=== PATIENT | female | born 1990 | race Caucasian/White ===

== ENCOUNTER 2016-06-04 06:25 | Inpatient (IN) | payer BC ==
[2016-06-04] MEDS ORDERED: Misoprostol 25 MCG (1/4 of 100 MCG) Tab ONE ×2 (07:27→10:40)
[2016-06-04] MEDS ORDERED: Sodium Chloride 0.9% 10 ML Syringe FLUSH PRN (07:31)
[2016-06-04] MEDS ORDERED: Nalbuphine 20 MG/1 ML Amp IVPUSH PRN (07:34)
[2016-06-04] MEDS ORDERED: Ampicillin 2 GM in Sodium Chloride 0.9% 100 ML IV ONE (07:35)
--- NOTE | 2016-06-04 07:43 | PCM.LDHP ---
L&D History of Present Illness - General Date of Service: 06/04/16 Admit Problem/Dx: Admission Diagnosis/Problem Admission Diagnosis/Problem Source of Information: Patient History Limitations: Reports: No limitations - History of Present Illness Introduction:: 25-year-old, G1, P0000, TEE 4 at estimated gestational age 39 weeks, and 4 days. Patient presents labor and deliver for induction of labor. GBS positive. Blood type O positive, antibody screen negative, hemoglobin, hematocrit 13.8,/40.7 on 11/01/15, rubella immune, RPR nonreactive, hepatitis B surface antigen negative, HIV negative, GC, chlamydia, negative on : 10.5/31.7, platelets 188,000 and 1 hour OB glucose screen 103. Patient lives in [facility]. Improves with: Reports: None Worsens with: Reports: None Associated Symptoms: Reports: N - Related Data Allergies/Adverse Reactions: Allergies Allergy/AdvReac Type Severity Reaction Status Date / Time Sulfa (Sulfonamide Allergy Hives Verified 06/04/16 07:42 Antibiotics) Past Medical History : 1 Para: 0 (0000) LMP (Approximate): H&P Review of Systems - Review of Systems: Review Of Systems: See Below General: Reports: no symptoms HEENT: Reports: no symptoms Pulmonary: Reports: No Symptoms Cardiovascular: Reports: no symptoms Gastrointestinal: Reports: No symptoms Genitourinary: Reports: no symptoms Musculoskeletal: Reports: no symptoms Skin: Reports: no symptoms Psychiatric: Reports: no symptoms Neurological: Reports: No Symptoms Hematologic/Lymphatic: Reports: no symptoms Immunologic: Reports: no symptoms L&D Exam - Exam Exam: See Below - OB Specific Fundal Height in cm: 38 movement: active heart tones: present heart tones per min: 135 Heart Rate (FHR) Variability: Moderate (6-25 bmp) Presentation: Vertex - Parker Score Parker Score Cervix Position: Posterior Parker Score Consistency: Soft Parker Score Effacement: >80% Parker Score Dilation: 1-2 cm Parker Score Infant's Station: -3 Parker Score Total: 6 - Exam General: alert, oriented HEENT: Mucosa moist & pink Neck: supple, trachea midline Lungs: Clear to auscultation, Normal respiratory effort Cardiovascular: regular rate, regular rhythm Abdomen: normal bowel sounds, soft Genitourinary: Normal external exam Back Exam: normal inspection, full range of motion Extremities: normal inspection Skin: warm, dry, intact Neurological: reflexes equal bilateral Psychiatric: alert, normal affect, normal mood - Problem List (1) 39 weeks gestation of SNOMED Code(s): 64442097 ICD Code: Z3A.39 - 39 WEEKS GESTATION OF Status: Acute Current Visit: Yes (2) GBS (group B Streptococcus carrier), +RV culture, currently SNOMED Code(s): 44051449, 028338190 ICD Code: O99.820 - STREPTOCOCCUS B CARRIER STATE COMPLICATING Status: Acute Current Visit: Yes Problem List Initiated/Reviewed/Updated: No Orders Last 24hrs: Active Orders 24 hr Category Date Time Status Communication Order [RC] ASDIRECTED Care 06/04/16 07:31 Ordered Communication Order [RC] ASDIRECTED Care 06/04/16 07:31 Ordered Communication Order [RC] ASDIRECTED Care 06/04/16 07:31 Ordered Monitoring [RC] INTERMITTENT Care 06/04/16 07:31 Ordered Notify Provider [RC] ASDIRECTED Care 06/04/16 07:31 Ordered Peripheral IV Care [RC] . DIRECTED Care 06/04/16 07:31 Ordered Vaginal Exam [RC] ASDIRECTED Care 06/04/16 07:31 Ordered Vital Signs [RC] ASDIRECTED Care 06/04/16 07:31 Ordered Clear Liquid Diet [DIET] Diet 06/04/16 Breakfast Ordered CBC WITH AUTO DIFF [HEME] Stat Lab 06/04/16 07:34 Ordered TYPE AND SCREEN [BBK] Stat Lab 06/04/16 07:34 Ordered Ampicillin 1 gm Med 06/04/16 12:00 Ordered Sodium Chloride 0.9% [Normal Saline] 100 ml IV Q4H Ampicillin 2 gm Med 06/04/16 07:35 Ordered Sodium Chloride 0.9% [Normal Saline] 100 ml IV ONETIME Lactated Ringers [Ringers, Lactated] 1,000 ml Med 06/04/16 07:45 Ordered IV ASDIRECTED Misoprostol [Cytotec] Med 06/04/16 07:45 Ordered 25 mcg VAG Q3H Nalbuphine [Nubain] Med 06/04/16 07:34 Ordered 10 mg IVPUSH Q2H PRN Oxytocin [Pitocin] 20 unit Med 06/04/16 07:45 Ordered Lactated Ringers [Ringers, Lactated] 1,000 ml IV ASDIRECTED Oxytocin/Lactated Ringers [Pitocin in LR 10 Units/1,000 Med 06/04/16 07:45 Ordered ML] 10 unit in 1,000 ml IV TITRATE Sodium Chloride 0.9% [Saline Flush] Med 06/04/16 07:31 Ordered 10 ml FLUSH ASDIRECTED PRN Peripheral IV Insertion Adult [OM.PC] Routine Oth 06/04/16 07:31 Ordered Medication Orders Ampicillin Sodium 2 gm/ Sodium (Chloride) 100 mls @ 200 mls/hr IV ONETIME ONE Stop: 06/04/16 08:04 Lactated Ringer's (Ringers, Lactated) 1,000 mls @ 40 mls/hr IV ASDIRECTED ADE Oxytocin/Lactated Ringer's (Pitocin In Lr 10 Units/1,000 Ml) 10 unit in 1,000 mls @ 12 mls/hr IV TITRATE ADE; 2 MUNITS/MIN PRN Reason: Protocol Ampicillin Sodium 1 gm/ Sodium (Chloride) 100 mls @ 200 mls/hr IV Q4H ADE Misoprostol (Cytotec) 25 mcg VAG Q3H ADE Stop: 06/04/16 13:46 Nalbuphine HCl (Nubain) 10 mg IVPUSH Q2H PRN PRN Reason: Pain Sodium Chloride (Saline Flush) 10 ml FLUSH ASDIRECTED PRN PRN Reason: Keep Vein Open Assessment/Plan Comment:: Admit for labor and delivery
[2016-06-04] MEDS ORDERED: Oxytocin/Lactated Ringers 10 UNIT/1,000 ML BAG IV SCH (07:45)
[2016-06-04] MEDS ORDERED: Sodium Chloride 0.9% 100 ML ONE (07:45)
[2016-06-04] MEDS: Misoprostol 100 MCG Tab VAG SCH (07:45)
[2016-06-04] MEDS: Lactated Ringers 1,000 ML IV SCH (07:54)
[2016-06-04] MEDS ORDERED: ePHEDrine 50 MG/ML SDV IVPUSH PRN (09:20)
[2016-06-04] MEDS ORDERED: Ondansetron 4 MG/2 ML SDV IVPUSH PRN (09:20)
[2016-06-04] MEDS ORDERED: fentaNYL 100 MCG/2 ML SDV EPIDUR PRN (09:20)
--- NOTE | 2016-06-04 09:28 | PCM.PREANE ---
Preanesthetic Assessment - Anesthesia/Transfusion/Family Hx Anesthesia History: Prior Anesthesia Without Reaction Family History of Anesthesia Reaction: No Transfusion History: No Prior Transfusion(s) Intubation History: Unknown - Review of Systems General: No Symptoms Pulmonary: No Symptoms Cardiovascular: Orthopnea Gastrointestinal: No symptoms (GERD) Neurological: No Symptoms Other: Reports: None, Sinus Problem (seasonal allergies noted.), Anxiety - Physical Assessment NPO Status Date: 06/04/16 NPO Status Time: 06:00 Pulse: 106 O2 Sat by Pulse Oximetry: 99 Respiratory Rate: 15 Blood Pressure: 122/77 Temperature: 36.3 C Vital Signs: Last Vital Signs Temp 36.3 C 06/04/16 07:47 Pulse 106 H 06/04/16 07:47 Resp 15 06/04/16 07:47 BP 122/77 06/04/16 07:47 Pulse Ox Height: 1.63 m Weight: 77.519 kg ASA Class: 2 Mental Status: Alert & Oriented x3 Airway Class: Mallampati = 2 Dentition: Reports: Normal Dentition (metal retainer noted on the bottom/ permanent.), Caries Thyro-Mental Finger Breadths: 3 Mouth Opening Finger Breadths: 3 ROM/Head Extension: Full Lungs: Clear to auscultation, Normal respiratory effort Cardiovascular: Regular Rate, Regular Rhythm - Lab Values: Laboratory Last Values WBC 8.85 K/mm3 (3.98-10.04) 06/04/16 07:56 RBC 3.81 M/mm3 (3.98-5.22) L 06/04/16 07:56 Hgb 11.5 gm/L (11.2-15.7) 06/04/16 07:56 Hct 34.3 % (34.1-44.9) 06/04/16 07:56 MCV 90.0 fl (79.4-94.8) 06/04/16 07:56 MCH 30.2 pg (25.6-32.2) 06/04/16 07:56 MCHC 33.5 g/dl (32.2-35.5) 06/04/16 07:56 RDW Std Deviation 48.1 fL (36.4-46.3) H 06/04/16 07:56 Plt Count 125 K/mm3 (182-369) L 06/04/16 07:56 MPV 12.3 fl (9.4-12.3) 06/04/16 07:56 Neut % (Auto) 70.0 % (34.0-71.1) 06/04/16 07:56 Lymph % (Auto) 19.3 % (19.3-51.7) 06/04/16 07:56 [place] % (Auto) 9.0 % (4.7-12.5) 06/04/16 07:56 Eos % (Auto) 0.8 (0.7-5.8) 06/04/16 07:56 Baso % (Auto) 0.1 % (0.1-1.2) 06/04/16 07:56 Neut # (Auto) 6.19 K/mm3 (1.56-6.13) H 06/04/16 07:56 Lymph # (Auto) 1.71 K/mm3 (1.18-3.74) 06/04/16 07:56 [place] # (Auto) 0.80 K/mm3 (0.24-0.36) H 06/04/16 07:56 Eos # (Auto) 0.07 K/mm3 (0.04-0.36) 06/04/16 07:56 Baso # (Auto) 0.01 K/mm3 (0.01-0.08) 06/04/16 07:56 Blood Type O POSITIVE 06/04/16 07:56 Gel Antibody Screen Negative 06/04/16 07:56 Labs reviewed and noted from above. - Allergies Allergies/Adverse Reactions: Allergies Allergy/AdvReac Type Severity Reaction Status Date / Time Sulfa (Sulfonamide Allergy Hives Verified 06/04/16 07:42 Antibiotics) - Anesthesia Plan Pre-Op Medication Ordered: None - Acknowledgements Anesthesia Type Planned: Epidural Pt an Appropriate Candidate for the Planned Anesthesia: Yes Alternatives and Risks of Anesthesia Discussed w Pt/Guardian: Yes Pt/Guardian Understands and Agrees with Anesthesia Plan: Yes PreAnesthesia Questionnaire [employer]CH[employer]ICIAN History: Reports: Psychiatric History: Reports: Anxiety - Past Surgical History HEENT Surgical History: Reports: Oral surgery - SUBSTANCE USE Smoking Status *Q: Never Smoker Tobacco Use Within Last Twelve Months: No Second Hand Smoke Exposure: No Recreational Drug Use History: No - CURRENT (IN HOUSE) MEDS Current Meds: Current Medications Lactated Ringer's (Ringers, Lactated) 1,000 mls @ 40 mls/hr IV ASDIRECTED ADE Last Admin: 06/04/16 07:54 Dose: 40 mls/hr Oxytocin/Lactated Ringer's (Pitocin In Lr 10 Units/1,000 Ml) 10 unit in 1,000 mls @ 12 mls/hr IV TITRATE ADE; 2 MUNITS/MIN PRN Reason: Protocol Ampicillin Sodium 1 gm/ Sodium (Chloride) 100 mls @ 200 mls/hr IV Q4H ADE Oxytocin 20 unit/ Lactated (Ringer's) 1,002 mls @ 500 mls/hr IV ASDIRECTED ADE Misoprostol (Cytotec) 25 mcg VAG Q3H ADE Stop: 06/04/16 14:01 Last Admin: 06/04/16 07:45 Dose: 25 mcg Nalbuphine HCl (Nubain) 10 mg IVPUSH Q2H PRN PRN Reason: Pain Sodium Chloride (Saline Flush) 10 ml FLUSH ASDIRECTED PRN PRN Reason: Keep Vein Open Discontinued Medications Ampicillin Sodium 2 gm/ Sodium (Chloride) 100 mls @ 200 mls/hr IV ONETIME ONE Stop: 06/04/16 08:04 Last Admin: 06/04/16 07:55 Dose: 200 mls/hr Sodium Chloride (Normal Saline) Confirm Administered Dose 100 mls @ as directed .ROUTE .STK-MED ONE Stop: 06/04/16 07:46 Misoprostol (Cytotec) Confirm Administered Dose 25 mcg .ROUTE .STK-MED ONE Stop: 06/04/16 07:28
--- NOTE | 2016-06-04 10:02 | PCM.SN ---
- Free Text/Narrative Note: First Cytotec 25 mcg placed intravaginally at 0745 hours
[2016-06-04] MEDS ORDERED: Misoprostol 25 MCG (1/4 of 100 MCG) Tab VAG SCH (10:42)
--- NOTE | 2016-06-04 12:12 | PCM.SN ---
- Free Text/Narrative Note: Will continue Cytotec 25 mcg at 1400, 1700, 2000 and then start Pitocin at MN tonight. Discussed plan with patient and family and they agree. NST reactive.
[2016-06-04] MEDS: Ampicillin 1 GM in Sodium Chloride 0.9% 100 ML IV SCH ×3 (12:24→20:59)
[2016-06-04] MEDS: Misoprostol 25 MCG (1/4 of 100 MCG) Tab VAG SCH ×3 (14:04→21:00)
--- NOTE | 2016-06-04 16:15 | PCM.SN ---
- Free Text/Narrative Note: Contractions increasing in intensity, cervix unchanged at 1400, due for cytotec at 1700 and 2000 then pitocin at MN sill started. FHR Cat I
[2016-06-05] MEDS: Bupivacaine/fentaNYL/NS 100 ML Bag EPIDUR SCH ×3 (00:13→15:26)
[2016-06-05] MEDS: Lactated Ringers 1,000 ML IV SCH ×3 (01:03→18:04)
[2016-06-05] MEDS: Ampicillin 1 GM in Sodium Chloride 0.9% 100 ML IV SCH ×5 (01:04→16:25)
[2016-06-05] MEDS: Misoprostol 25 MCG (1/4 of 100 MCG) Tab VAG SCH ×2 (02:38→04:51)
--- NOTE | 2016-06-05 08:06 | PCM.SN ---
- Free Text/Narrative Note: Cervix 4 cm/80% effaced, soft, mid position, -1 station. Cat I FHR. Amniotomy clear fluid.
--- NOTE | 2016-06-05 16:34 | PCM.SN ---
- Free Text/Narrative Note: Cervix complete, ROT, zero station will begin pushing Cat I FHR.
[2016-06-05] MEDS ORDERED: Misoprostol 200 MCG Tab ONE (18:53)
--- NOTE | 2016-06-05 19:35 | PCM.DEL ---
L & D Note - General Info Date of Service: 06/05/16 Mother's Due Date: 06/07/16 - Delivery Note Labor: augmented by ARM, augmented by oxytocin Cervical Ripening Method: Misoprostil (25 mcg x5) Delivery Outcome: Livebirth (male STACY 3430 grams/ 7#9 oz at [id number] APGARS 7/9) Delivery Method: Spontaneous Vaginal Delivery Infant Delivery Mode: Spontaneous Presentation: Left Occiput Anterior (STACY) Nuchal cord: none Prep: povidone-iodine (betadine Anesthesia Type: Epidural Amniotic Fluid Description: Clear Episiotomy Type: Midline Laceration: none Suture type: other (monocryl x3) Suture size: 3-0 Placenta: intact, spontaneous (1845) Cord: 3 vessels Estimated blood loss: 750 Resuscitation needed: No : bulb syringe, cathether, stimulated, warmed, blanket used, warmer used Provider: Dallas Rodriguez a) Score 1 min: 7 Score 5 min: 9 - Patient Data Vitals - most recent: Last Vital Signs Temp 97.3 F 06/04/16 09:33 Pulse 106 H 06/04/16 09:33 Resp 15 06/04/16 09:33 BP 122/77 06/04/16 09:33 Pulse Ox 99 06/04/16 09:33 Weight - most recent: 170 lb 14.4 oz Med Orders - Current: Current Medications Ephedrine Sulfate (Ephedrine Sulfate) 5 mg IVPUSH ASDIRECTED PRN PRN Reason: Hypotension Fentanyl (Sublimaze) 100 mcg EPIDUR Q3H PRN PRN Reason: Pain Last Admin: 06/05/16 00:13 Dose: 100 mcg Fentanyl/Bupivacaine HCl (Fentanyl/Bupivacaine/Ns 2 Mcg-0.125% 100 Ml) 100 ml EPIDUR ASDIRECTED ADE Last Admin: 06/05/16 15:26 Dose: 100 ml Lactated Ringer's (Ringers, Lactated) 1,000 mls @ 40 mls/hr IV ASDIRECTED ADE Last Admin: 06/05/16 18:04 Dose: 40 mls/hr Oxytocin/Lactated Ringer's (Pitocin In Lr 10 Units/1,000 Ml) 10 unit in 1,000 mls @ 12 mls/hr IV TITRATE ADE; 2 MUNITS/MIN PRN Reason: Protocol Last Titration: 06/05/16 18:21 Dose: 14 munits/min, 84 mls/hr Ampicillin Sodium 1 gm/ Sodium (Chloride) 100 mls @ 200 mls/hr IV Q4H [facility] Last Admin: 06/05/16 16:25 Dose: 200 mls/hr Oxytocin 20 unit/ Lactated (Ringer's) 1,002 mls @ 500 mls/hr IV ASDIRECTED ADE Nalbuphine HCl (Nubain) 10 mg IVPUSH Q2H PRN PRN Reason: Pain Ondansetron HCl (Zofran) 4 mg IVPUSH ONETIME PRN PRN Reason: Nausea/Vomiting Sodium Chloride (Saline Flush) 10 ml FLUSH ASDIRECTED PRN PRN Reason: Keep Vein Open Discontinued Medications Ampicillin Sodium 2 gm/ Sodium (Chloride) 100 mls @ 200 mls/hr IV ONETIME ONE Stop: 06/04/16 08:04 Last Admin: 06/04/16 07:55 Dose: 200 mls/hr Sodium Chloride (Normal Saline) Confirm Administered Dose 100 mls @ as directed .ROUTE .STK-MED ONE Stop: 06/04/16 07:46 Last Admin: 06/04/16 09:54 Dose: Not Given Misoprostol (Cytotec) Confirm Administered Dose 25 mcg .ROUTE .STK-MED ONE Stop: 06/04/16 07:28 Last Admin: 06/04/16 09:54 Dose: Not Given Misoprostol (Cytotec) 25 mcg VAG Q3H [facility] Stop: 06/04/16 14:01 Last Admin: 06/04/16 07:45 Dose: 25 mcg Misoprostol (Cytotec) 25 mcg VAG Q3H [facility] Stop: 06/04/16 14:01 Last Admin: 06/04/16 10:49 Dose: 25 mcg Misoprostol (Cytotec) Confirm Administered Dose 25 mcg .ROUTE .STK-MED ONE Stop: 06/04/16 10:41 Last Admin: 06/04/16 11:03 Dose: Not Given Misoprostol (Cytotec) 25 mcg VAG Q3H [facility] Stop: 06/05/16 02:01 Last Admin: 06/05/16 04:51 Dose: Not Given Misoprostol (Cytotec) Confirm Administered Dose 400 mcg .ROUTE .STK-MED ONE Stop: 06/05/16 18:54 - Problem List & Annotations (1) 39 weeks gestation of SNOMED Code(s): 07451526 Code(s): Z3A.39 - 39 WEEKS GESTATION OF Status: Acute Current Visit: Yes (2) GBS (group B Streptococcus carrier), +RV culture, currently SNOMED Code(s): 32456532, 556758755 Code(s): O99.820 - STREPTOCOCCUS B CARRIER STATE COMPLICATING Status: Acute Current Visit: Yes (3) Spontaneous vaginal delivery SNOMED Code(s): 86100084 Code(s): O80 - ENCOUNTER FOR FULL-TERM UNCOMPLICATED DELIVERY Status: Acute Current Visit: Yes - Problem List Review Problem List Initiated/Reviewed/Updated: No - Plan Plan:: Admit for labor and delivery
[2016-06-05] MEDS ORDERED: Simethicone 80 MG Tab.Chew PO PRN (19:38)
[2016-06-05] MEDS ORDERED: Acetaminophen/oxyCODONE 325-5 MG Tab PO PRN (19:38)
[2016-06-05] MEDS ORDERED: Lanolin 100% Cream 7 GM Tube TOP PRN (19:38)
[2016-06-05] MEDS ORDERED: Acetaminophen 325 MG Tab PO PRN (19:38)
[2016-06-05] MEDS ORDERED: Witch Hazel Medicated Pads 100/Jar TOP PRN (19:38)
[2016-06-05] MEDS ORDERED: Bupivacaine 0.25% 10 ML SDV ONE (19:38)
[2016-06-05] MEDS ORDERED: Benzocaine/Menthol 20%-0.5% Spray 56 GM Canister TOP PRN (19:38)
[2016-06-05] MEDS ORDERED: Misoprostol 200 MCG Tab PO ONE (19:52)
[2016-06-05] MEDS: Docusate Sodium 100 MG Cap PO PRN (20:39)
[2016-06-05] MEDS: Ibuprofen 600 MG Tab PO PRN (20:39)
[2016-06-06] MEDS: Docusate Sodium 100 MG Cap PO PRN ×2 (06:04→21:55)
[2016-06-06] MEDS: Ibuprofen 600 MG Tab PO PRN ×4 (06:05→21:55)
--- NOTE | 2016-06-06 08:22 | PCM.SN ---
- Free Text/Narrative Note: Afebrile, no heavy vaginal bleeding, no leg cramping. Had BM and urinating without difficulty. Slep well last night.
[2016-06-06] MEDS: Prenatal Multivitamin with Calcium/Folic Acid/Iron Tab PO SCH (10:27)
[2016-06-07] MEDS: Ibuprofen 600 MG Tab PO PRN (03:59)
[2016-06-07 05:01] VITALS: BP 121/80
--- NOTE | 2016-06-07 07:43 | PCM.DCSUM1 ---
Discharge Summary - Hospital Course Free Text/Narrative:: [facility] LIVE L/D Delivery Note Patient Name: BOUCHRA LEE Date of : 89 Patient Status: Inpatient Attending Provider: Dallas Vela Date: 06/05/16 19:23 Initialization Date: 06/05/16 19:23 L & D Note - General Info Date of Service: 06/05/16 Mother's Due Date: 06/07/16 - Delivery Note Labor: augmented by ARM, augmented by oxytocin Cervical Ripening Method: Misoprostil (25 mcg x5) Delivery Outcome: Livebirth (male STACY 3430 grams/ 7#9 oz at [id number] APGARS 7/9) Delivery Method: Spontaneous Vaginal Delivery Delivery Mode: Spontaneous Presentation: Left Occiput Anterior (STACY) Nuchal cord: none Prep: povidone-iodine (betadine Anesthesia Type: Epidural Amniotic Fluid Description: Clear Episiotomy Type: Midline Laceration: none Suture type: other (monocryl x3) Suture size: 3-0 Placenta: intact, spontaneous (1845) Cord: 3 vessels Estimated blood loss: 750 Resuscitation needed: No [place]: bulb syringe, cathether, stimulated, warmed, blanket used, warmer used Provider: Dallas Vela (Jeferson a) Score 1 min: 7 Score 5 min: 9 - Patient Data Vitals - most recent: Last Vital Signs Temp 97.3 F 06/04/16 09:33 Pulse 106 H 06/04/16 09:33 Resp 15 06/04/16 09:33 BP 122/77 06/04/16 09:33 Pulse Ox 99 06/04/16 09:33 Weight - most recent: 170 lb 14.4 oz Med Orders - Current: Current Medications Ephedrine Sulfate (Ephedrine Sulfate) 5 mg IVPUSH ASDIRECTED PRN PRN Reason: Hypotension Fentanyl (Sublimaze) 100 mcg EPIDUR Q3H PRN PRN Reason: Pain Last Admin: 06/05/16 00:13 Dose: 100 mcg Fentanyl/Bupivacaine HCl (Fentanyl/Bupivacaine/Ns 2 Mcg-0.125% 100 Ml) 100 ml EPIDUR ASDIRECTED ADE Last Admin: 06/05/16 15:26 Dose: 100 ml Lactated Ringer's (Ringers, Lactated) 1,000 mls @ 40 mls/hr IV ASDIRECTED ADE Last Admin: 06/05/16 18:04 Dose: 40 mls/hr Oxytocin/Lactated Ringer's (Pitocin In Lr 10 Units/1,000 Ml) 10 unit in 1,000 mls @ 12 mls/hr IV TITRATE ADE; 2 MUNITS/MIN PRN Reason: Protocol Last Titration: 06/05/16 18:21 Dose: 14 munits/min, 84 mls/hr Ampicillin Sodium 1 gm/ Sodium (Chloride) 100 mls @ 200 mls/hr IV Q4H COUNT INCLUDES THE [facility] Last Admin: 06/05/16 16:25 Dose: 200 mls/hr Oxytocin 20 unit/ Lactated (Ringer's) 1,002 mls @ 500 mls/hr IV ASDIRECTED COUNT INCLUDES THE [facility] Nalbuphine HCl (Nubain) 10 mg IVPUSH Q2H PRN PRN Reason: Pain Ondansetron HCl (Zofran) 4 mg IVPUSH ONETIME PRN PRN Reason: Nausea/Vomiting Sodium Chloride (Saline Flush) 10 ml FLUSH ASDIRECTED PRN PRN Reason: Keep Vein Open Discontinued Medications Ampicillin Sodium 2 gm/ Sodium (Chloride) 100 mls @ 200 mls/hr IV ONETIME ONE Stop: 06/04/16 08:04 Last Admin: 06/04/16 07:55 Dose: 200 mls/hr Sodium Chloride (Normal Saline) Confirm Administered Dose 100 mls @ as directed .ROUTE .STK-MED ONE Stop: 06/04/16 07:46 Last Admin: 06/04/16 09:54 Dose: Not Given Misoprostol (Cytotec) Confirm Administered Dose 25 mcg .ROUTE .STK-MED ONE Stop: 06/04/16 07:28 Last Admin: 06/04/16 09:54 Dose: Not Given Misoprostol (Cytotec) 25 mcg VAG Q3H COUNT INCLUDES THE [facility] Stop: 06/04/16 14:01 Last Admin: 06/04/16 07:45 Dose: 25 mcg Misoprostol (Cytotec) 25 mcg VAG Q3H COUNT INCLUDES THE [facility] Stop: 06/04/16 14:01 Last Admin: 06/04/16 10:49 Dose: 25 mcg Misoprostol (Cytotec) Confirm Administered Dose 25 mcg .ROUTE .STK-MED ONE Stop: 06/04/16 10:41 Last Admin: 06/04/16 11:03 Dose: Not Given Misoprostol (Cytotec) 25 mcg VAG Q3H ADE Stop: 06/05/16 02:01 Last Admin: 06/05/16 04:51 Dose: Not Given Misoprostol (Cytotec) Confirm Administered Dose 400 mcg .ROUTE .STK-MED ONE Stop: 06/05/16 18:54 - Problem List & Annotations (1) 39 weeks gestation of SNOMED Code(s): 70118304 Code(s): Z3A.39 - 39 WEEKS GESTATION OF Status: Acute Current Visit: Yes (2) GBS (group B Streptococcus carrier), +RV culture, currently SNOMED Code(s): 55723848, 363786757 Code(s): O99.820 - STREPTOCOCCUS B CARRIER STATE COMPLICATING Status: Acute Current Visit: Yes (3) Spontaneous vaginal delivery SNOMED Code(s): 72556247 Code(s): O80 - ENCOUNTER FOR FULL-TERM UNCOMPLICATED DELIVERY Status: Acute Current Visit: Yes - Problem List Review Problem List Initiated/Reviewed/Updated: No - Plan Plan:: Admit for labor and delivery HPI Initial Comments: [facility] LIVE L/D Delivery Note Patient Name: BOUCHRA LEE Date of : 89 Patient Status: Inpatient Attending Provider: Dallas Vela Date: 06/05/16 19:23 Initialization Date: 06/05/16 19:23 L & D Note - General Info Date of Service: 06/05/16 Mother's Due Date: 06/07/16 - Delivery Note Labor: augmented by ARM, augmented by oxytocin Cervical Ripening Method: Misoprostil (25 mcg x5) Delivery Outcome: Livebirth (male STACY 3430 grams/ 7#9 oz at [id number] APGARS 7/9) Delivery Method: Spontaneous Vaginal Delivery Infant Delivery Mode: Spontaneous Presentation: Left Occiput Anterior (STACY) Nuchal cord: none Prep: povidone-iodine (betadine Anesthesia Type: Epidural Amniotic Fluid Description: Clear Episiotomy Type: Midline Laceration: none Suture type: other (monocryl x3) Suture size: 3-0 Placenta: intact, spontaneous (1846) Cord: 3 vessels Estimated blood loss: 750 Resuscitation needed: No : bulb syringe, cathether, stimulated, warmed, blanket used, warmer used Provider: Dallas Vela (Jeferson a) Score 1 min: 7 Score 5 min: 9 - Patient Data Vitals - most recent: Last Vital Signs Temp 97.3 F 06/04/16 09:33 Pulse 106 H 06/04/16 09:33 Resp 15 06/04/16 09:33 BP 122/77 06/04/16 09:33 Pulse Ox 99 06/04/16 09:33 Weight - most recent: 170 lb 14.4 oz Med Orders - Current: Current Medications Ephedrine Sulfate (Ephedrine Sulfate) 5 mg IVPUSH ASDIRECTED PRN PRN Reason: Hypotension Fentanyl (Sublimaze) 100 mcg EPIDUR Q3H PRN PRN Reason: Pain Last Admin: 06/05/16 00:13 Dose: 100 mcg Fentanyl/Bupivacaine HCl (Fentanyl/Bupivacaine/Ns 2 Mcg-0.125% 100 Ml) 100 ml EPIDUR ASDIRECTED ADE Last Admin: 06/05/16 15:26 Dose: 100 ml Lactated Ringer's (Ringers, Lactated) 1,000 mls @ 40 mls/hr IV ASDIRECTED ADE Last Admin: 06/05/16 18:04 Dose: 40 mls/hr Oxytocin/Lactated Ringer's (Pitocin In Lr 10 Units/1,000 Ml) 10 unit in 1,000 mls @ 12 mls/hr IV TITRATE ADE; 2 MUNITS/MIN PRN Reason: Protocol Last Titration: 06/05/16 18:21 Dose: 14 munits/min, 84 mls/hr Ampicillin Sodium 1 gm/ Sodium (Chloride) 100 mls @ 200 mls/hr IV Q4H ADE Last Admin: 06/05/16 16:25 Dose: 200 mls/hr Oxytocin 20 unit/ Lactated (Ringer's) 1,002 mls @ 500 mls/hr IV ASDIRECTED ADE Nalbuphine HCl (Nubain) 10 mg IVPUSH Q2H PRN PRN Reason: Pain Ondansetron HCl (Zofran) 4 mg IVPUSH ONETIME PRN PRN Reason: Nausea/Vomiting Sodium Chloride (Saline Flush) 10 ml FLUSH ASDIRECTED PRN PRN Reason: Keep Vein Open Discontinued Medications Ampicillin Sodium 2 gm/ Sodium (Chloride) 100 mls @ 200 mls/hr IV ONETIME ONE Stop: 06/04/16 08:04 Last Admin: 06/04/16 07:55 Dose: 200 mls/hr Sodium Chloride (Normal Saline) Confirm Administered Dose 100 mls @ as directed .ROUTE .STK-MED ONE Stop: 06/04/16 07:46 Last Admin: 06/04/16 09:54 Dose: Not Given Misoprostol (Cytotec) Confirm Administered Dose 25 mcg .ROUTE .STK-MED ONE Stop: 06/04/16 07:28 Last Admin: 06/04/16 09:54 Dose: Not Given Misoprostol (Cytotec) 25 mcg VAG Q3H COUNT INCLUDES THE [facility] Stop: 06/04/16 14:01 Last Admin: 06/04/16 07:45 Dose: 25 mcg Misoprostol (Cytotec) 25 mcg VAG Q3H COUNT INCLUDES THE [facility] Stop: 06/04/16 14:01 Last Admin: 06/04/16 10:49 Dose: 25 mcg Misoprostol (Cytotec) Confirm Administered Dose 25 mcg .ROUTE .STK-MED ONE Stop: 06/04/16 10:41 Last Admin: 06/04/16 11:03 Dose: Not Given Misoprostol (Cytotec) 25 mcg VAG Q3H COUNT INCLUDES THE [facility] Stop: 06/05/16 02:01 Last Admin: 06/05/16 04:51 Dose: Not Given Misoprostol (Cytotec) Confirm Administered Dose 400 mcg .ROUTE .STK-MED ONE Stop: 06/05/16 18:54 - Problem List & Annotations (1) 39 weeks gestation of SNOMED Code(s): 77550767 Code(s): Z3A.39 - 39 WEEKS GESTATION OF Status: Acute Current Visit: Yes (2) GBS (group B Streptococcus carrier), +RV culture, currently SNOMED Code(s): 48146632, 010946200 Code(s): O99.820 - STREPTOCOCCUS B CARRIER STATE COMPLICATING Status: Acute Current Visit: Yes (3) Spontaneous vaginal delivery SNOMED Code(s): 57548765 Code(s): O80 - ENCOUNTER FOR FULL-TERM UNCOMPLICATED DELIVERY Status: Acute Current Visit: Yes - Problem List Review Problem List Initiated/Reviewed/Updated: No - Plan Plan:: Admit for labor and delivery Brief History: [facility] LIVE . L/D Delivery Note. Patient Name: BOUCHRA LEEcal Record Number: [id number]. Date of : [birth year]Patient Status: Inpatient. Attending Provider: Dallas Vela Number: [id number]. Date: 06/05/16 19:23Initialization Date: 06/05/16 19:23. L & D Note. - General Info. Date of Service: 06/05/16. Mother's Due Date: 06/07/16. - Delivery Note. Labor: augmented by ARM, augmented by oxytocin. Cervical Ripening Method: Misoprostil (25 mcg x5). Delivery Outcome: Livebirth (male STACY 3430 grams/ 7#9 oz at [phone] APGARS 7/9). Infant Delivery Method: Spontaneous Vaginal Delivery. Delivery Mode: Spontaneous. Presentation: Left Occiput Anterior (STACY). Nuchal cord: none. Prep: povidone-iodine (betadine. Anesthesia Type: Epidural. Amniotic Fluid Description: Clear. Episiotomy Type: Midline. Laceration: none. Suture type: other (monocryl x3). Suture size: 3-0. Placenta: intact, spontaneous (1846). Cord: 3 vessels. Estimated blood loss: 750. Resuscitation needed: No. [place] : bulb syringe, cathether, stimulated, warmed, blanket used, warmer used. Provider: Dallas Vela (Making a). Score 1 min: 7. Score 5 min: 9. - Patient Data. Vitals - most recent: Last Vital Signs. Temp 97.3 F 06/04/16 09:33. Pulse 106 H 06/04/16 09:33. Resp 15 06/04/16 09: 33. BP 122/77 06/04/16 09:33. Pulse Ox 99 06/04/16 09:33. Weight - most recent: 170 lb 14.4 oz. Med Orders - Current: Current Medications. Ephedrine Sulfate (Ephedrine Sulfate) 5 mg IVPUSH ASDIRECTED PRN. PRN Reason: Hypotension. Fentanyl (Sublimaze) 100 mcg EPIDUR Q3H PRN. PRN Reason: Pain. Last Admin: 06/05/16 00:13 Dose: 100 mcg. Fentanyl/Bupivacaine HCl (Fentanyl/ Bupivacaine/Ns 2 Mcg-0.125% 100 Ml) 100 ml EPIDUR ASDIRECTED ADE. Last Admin: 06/05/16 15:26 Dose: 100 ml. Lactated Ringer's (Ringers, Lactated) 1,000 mls @ 40 mls/hr IV ASDIRECTED ADE. Last Admin: 06/05/16 18:04 Dose: 40 mls/hr. Oxytocin/Lactated Ringer's (Pitocin In Lr 10 Units/1,000 Ml) 10 unit in 1,000 mls @ 12 mls/hr IV TITRATE ADE; 2 MUNITS/MIN. PRN Reason: Protocol. Last Titration: 06/05/16 18:21 Dose: 14 munits/min, 84 mls/hr. Ampicillin Sodium 1 gm/ Sodium (Chloride) 100 mls @ 200 mls/hr IV Q4H ADE. Last Admin: 06/05/16 16 :25 Dose: 200 mls/hr. Oxytocin 20 unit/ Lactated (Ringer's) 1,002 mls @ 500 mls/hr IV ASDIRECTED ADE. Nalbuphine HCl (Nubain) 10 mg IVPUSH Q2H PRN. PRN Reason: Pain. Ondansetron HCl (Zofran) 4 mg IVPUSH ONETIME PRN. PRN Reason: Nausea/Vomiting. Sodium Chloride (Saline Flush) 10 ml FLUSH ASDIRECTED PRN. PRN Reason: Keep Vein Open. Discontinued Medications. Ampicillin Sodium 2 gm/ Sodium (Chloride) 100 mls @ 200 mls/hr IV ONETIME ONE. Stop: 06/04/16 08:04. Last Admin: 06/04/16 07:55 Dose: 200 mls/hr. Sodium Chloride (Normal Saline) Confirm Administered Dose 100 mls @ as directed .ROUTE .STK-MED ONE. Stop: 07:46. Last Admin: 06/04/16 09:54 Dose: Not Given. Misoprostol (Cytotec ) Confirm Administered Dose 25 mcg .ROUTE .STK-MED ONE. Stop: 06/04/16 07:28. Last Admin: 06/04/16 09:54 Dose: Not Given. Misoprostol (Cytotec) 25 mcg VAG Q3H ADE. Stop: 06/04/16 14:01. Last Admin: 06/04/16 07:45 Dose: 25 mcg. Misoprostol (Cytotec) 25 mcg VAG Q3H ADE. Stop: 06/04/16 14:01. Last Admin: 06/04/16 10:49 Dose: 25 mcg. Misoprostol (Cytotec) Confirm Administered Dose 25 mcg .ROUTE .STK-MED ONE. Stop: 06/04/16 10:41. Last Admin: 06/04/16 11:03 Dose: Not Given. Misoprostol (Cytotec) 25 mcg VAG Q3H ADE. Stop: 06/05/16 02 :01. Last Admin: 06/05/16 04:51 Dose: Not Given. Misoprostol (Cytotec) Confirm Administered Dose 400 mcg .ROUTE .STK-MED ONE. Stop: 06/05/16 18:54. - Problem List & Annotations. (1) 39 weeks gestation of . SNOMED Code (s): 70111339. Code(s): Z3A.39 - 39 WEEKS GESTATION OF Status: Acute Current Visit: Yes. (2) GBS (group B Streptococcus carrier), +RV culture, currently . SNOMED Code(s): 63446849, 755894429. Code(s): O99.820 - STREPTOCOCCUS B CARRIER STATE COMPLICATING Status: Acute Current Visit: Yes. (3) Spontaneous vaginal delivery. SNOMED Code(s): 94168854. Code(s): O80 - ENCOUNTER FOR FULL-TERM UNCOMPLICATED DELIVERY Status: Acute Current Visit: Yes. - Problem List Review. Problem List Initiated/Reviewed/Updated: No. - Plan. Plan:: Admit for labor and delivery - Discharge Data Discharge Date: 06/07/16 Discharge Disposition: Home, Self-Care 01 Condition: Good - Discharge Diagnosis/Problem(s) (1) 39 weeks gestation of SNOMED Code(s): 07548623 ICD Code: Z3A.39 - 39 WEEKS GESTATION OF Status: Acute Current Visit: Yes (2) GBS (group B Streptococcus carrier), +RV culture, currently SNOMED Code(s): 76295579, 319166460 ICD Code: O99.820 - STREPTOCOCCUS B CARRIER STATE COMPLICATING Status: Acute Current Visit: Yes (3) Spontaneous vaginal delivery SNOMED Code(s): 49757516 ICD Code: O80 - ENCOUNTER FOR FULL-TERM UNCOMPLICATED DELIVERY Status: Acute Current Visit: Yes - Patient Summary/Data Complications: none Consults: none Hospital Course: uneventful - Patient Instructions Diet: Heart Healthy Diet Driving: Do Not Drive (x48 hrs) Showering/Bathing: May Shower Notify Provider of: Fever, Increased Pain, Swelling and Redness, Drainage, Nausea and/or Vomiting - Discharge Plan Prescriptions/Med Rec: Ibuprofen [Motrin] 200 - 600 mg PO Q6H #50 tablet Home Medications: Home Meds Vit with Ca/FA/Iron [ Plus Iron] 1 tab PO DAILY 06/05/16 [ History] Acetaminophen [Tylenol] 650 mg PO Q6H PRN #50 tablet 06/07/16 [Rx] Ibuprofen [Motrin] 200 - 600 mg PO Q6H #50 tablet 06/07/16 [Rx] Referrals: Dallas Vela MD [Primary Care Provider] - (6 weeks) - Discharge Summary/Plan Comment DC Time >30 min.: No - Patient Data Vitals - Most Recent: Last Vital Signs Temp 98.1 F 06/07/16 03:51 Pulse 70 06/07/16 03:51 Resp 16 06/07/16 03:51 BP 121/80 06/07/16 03:51 Pulse Ox 99 06/07/16 03:51 Weight - Most Recent: 170 lb 14.4 oz I&O - Last 24 hours: Intake & Output 06/06/16 06/07/16 06/07/16 22:59 06:59 14:59 Intake Total 320 Balance 320 Med Orders - Current: Current Medications Acetaminophen (Tylenol) 650 mg PO Q4H PRN PRN Reason: mild pain or fever Benzocaine/Menthol (Dermoplast Pain Relief [place]) 0 gm TOP ASDIRECTED PRN PRN Reason: Perineal Comfort Measure Last Admin: 06/05/16 20:39 Dose: 1 applic Docusate Sodium (Colace) 100 mg PO BID PRN PRN Reason: Constipation Last Admin: 06/06/16 21:55 Dose: 100 mg Emollient Ointment (Lansinoh Hpa) 0 gm TOP ASDIRECTED PRN PRN Reason: Sore Nipples Ibuprofen (Motrin) 600 mg PO Q4H PRN PRN Reason: Mild pain or fever Last Admin: 06/07/16 03:59 Dose: 600 mg Oxycodone/Acetaminophen (Percocet 325-5 Mg) 2 tab PO Q4H PRN PRN Reason: Pain (moderate 4-6) Prenat Multivit/Insurance Administrative Assistant/Iron/Folic Ac ( Plus Iron) 1 each PO DAILY ADE Last Admin: 06/06/16 10:27 Dose: 1 each Simethicone (Simethicone) 80 mg PO Q4H PRN PRN Reason: Gas Witch Caroline (Tucks) 1 pad TOP ASDIRECTED PRN PRN Reason: Hemorrhoid pain Last Admin: 06/05/16 20:27 Dose: 1 applic Discontinued Medications Ephedrine Sulfate (Ephedrine Sulfate) 5 mg IVPUSH ASDIRECTED PRN PRN Reason: Hypotension Fentanyl (Sublimaze) 100 mcg EPIDUR Q3H PRN PRN Reason: Pain Last Admin: 06/05/16 00:13 Dose: 100 mcg Fentanyl/Bupivacaine HCl (Fentanyl/Bupivacaine/Ns 2 Mcg-0.125% 100 Ml) 100 ml EPIDUR ASDIRECTED ADE Last Admin: 06/05/16 15:26 Dose: 100 ml Ampicillin Sodium 2 gm/ Sodium (Chloride) 100 mls @ 200 mls/hr IV ONETIME ONE Stop: 06/04/16 08:04 Last Admin: 06/04/16 07:55 Dose: 200 mls/hr Lactated Ringer's (Ringers, Lactated) 1,000 mls @ 40 mls/hr IV ASDIRECTED ADE Last Admin: 06/05/16 18:04 Dose: 40 mls/hr Oxytocin/Lactated Ringer's (Pitocin In Lr 10 Units/1,000 Ml) 10 unit in 1,000 mls @ 12 mls/hr IV TITRATE ADE; 2 MUNITS/MIN PRN Reason: Protocol Last Titration: 06/05/16 18:44 Dose: 500 mls/hr Ampicillin Sodium 1 gm/ Sodium (Chloride) 100 mls @ 200 mls/hr IV Q4H ADE Last Admin: 06/05/16 16:25 Dose: 200 mls/hr Oxytocin 20 unit/ Lactated (Ringer's) 1,002 mls @ 500 mls/hr IV ASDIRECTED COUNT INCLUDES THE [facility] Last Admin: 06/05/16 19:30 Dose: 500 mls/hr Sodium Chloride (Normal Saline) Confirm Administered Dose 100 mls @ as directed .ROUTE .STK-MED ONE Stop: 06/04/16 07:46 Last Admin: 06/04/16 09:54 Dose: Not Given Misoprostol (Cytotec) Confirm Administered Dose 25 mcg .ROUTE .STK-MED ONE Stop: 06/04/16 07:28 Last Admin: 06/04/16 09:54 Dose: Not Given Misoprostol (Cytotec) 25 mcg VAG Q3H COUNT INCLUDES THE [facility] Stop: 06/04/16 14:01 Last Admin: 06/04/16 07:45 Dose: 25 mcg Misoprostol (Cytotec) 25 mcg VAG Q3H COUNT INCLUDES THE [facility] Stop: 06/04/16 14:01 Last Admin: 06/04/16 10:49 Dose: 25 mcg Misoprostol (Cytotec) Confirm Administered Dose 25 mcg .ROUTE .STK-MED ONE Stop: 06/04/16 10:41 Last Admin: 06/04/16 11:03 Dose: Not Given Misoprostol (Cytotec) 25 mcg VAG Q3H COUNT INCLUDES THE [facility] Stop: 06/05/16 02:01 Last Admin: 06/05/16 04:51 Dose: Not Given Misoprostol (Cytotec) Confirm Administered Dose 400 mcg .ROUTE .STK-MED ONE Stop: 06/05/16 18:54 Last Admin: 06/05/16 18:53 Dose: 400 mcg Misoprostol (Cytotec) 400 mcg PO ONETIME ONE Stop: 06/05/16 19:53 Last Admin: 06/06/16 10:00 Dose: Not Given Nalbuphine HCl (Nubain) 10 mg IVPUSH Q2H PRN PRN Reason: Pain Ondansetron HCl (Zofran) 4 mg IVPUSH ONETIME PRN PRN Reason: Nausea/Vomiting Sodium Chloride (Saline Flush) 10 ml FLUSH ASDIRECTED PRN PRN Reason: Keep Vein Open *Q Meaningful Use (DIS) - VTE *Q VTE Criteria *Q: - Stroke *Q Stroke Criteria *Q: - AMI *Q AMI Criteria *Q:
[2016-06-07] MEDS: Misoprostol 100 MCG Tab VAG SCH (09:24)
[2016-06-07] MEDS: Prenatal Multivitamin with Calcium/Folic Acid/Iron Tab PO SCH (09:26)
== END 2016-06-07 09:45 | disposition home or self-care (01) | DRG 560 ==
LOC: JD.OB 06:25 → OBSVTOIN 06-05 18:43 → JD.OB 06-05 18:43
PROVIDERS: ADMIT Obstetrics & Gynecology; ATTEND Obstetrics & Gynecology
PROC: 10E0XZZ Delivery of Products of Conception, External Approach (ICD-10-PCS; principal; 2016-06-05)
PROC: 10907ZC Drainage of Amniotic Fluid, Therapeutic from Products of Conception, Via Natural or Artificial Opening (ICD-10-PCS; 2016-06-05)
PROC: 00HU33Z Insertion of Infusion Device into Spinal Canal, Percutaneous Approach (ICD-10-PCS; 2016-06-05)
PROC: 0W8NXZZ Division of Female Perineum, External Approach (ICD-10-PCS; 2016-06-05)
PROC: 3E0R3CZ (ICD-10-PCS; 2016-06-05)
PROC: 3E033VJ Introduction of Other Hormone into Peripheral Vein, Percutaneous Approach (ICD-10-PCS; 2016-06-05)
PROC: 3E0P7GC Introduction of Other Therapeutic Substance into Female Reproductive, Via Natural or Artificial Opening (ICD-10-PCS; 2016-06-05)
DX: O99.824 Streptococcus B carrier state complicating childbirth (principal); Z3A.40 40 weeks gestation of pregnancy; Z37.0 Single live birth; O70.9 Perineal laceration during delivery, unspecified; Z88.2 Allergy status to sulfonamides
CPT/HCPCS: 36415; 85025; 86850; 86900; 86901; A9270-GY; J0290; J2590; J3010; J7030; J7120

== ENCOUNTER 2019-07-14 07:36 | Emergency (ER) | payer BC ==
[2019-07-14 07:50] VITALS: BP 123/78; PULSE 101
--- NOTE | 2019-07-14 07:56 | EDM.PDOC ---
ED HPI GENERAL MEDICAL PROBLEM - General Chief Complaint: SHAPER HAND Problem Stated Complaint: VAGINAL BLEEDING Time Seen by Provider: 07/14/19 07:51 Source of Information: Reports: Patient History Limitations: Reports: No Limitations - History of Present Illness INITIAL COMMENTS - FREE TEXT/NARRATIVE: 28-year-old female who is 2 para 1 presents to the ED with bleeding per vagina starting about an hour ago. She reports every time she wipes for the last hour she is got bright red blood per vagina. No associated lower abdominal cramping pain. She is known to be with last almost a period estimated at April 29, 2019. She has had an ultrasound at 6 weeks and 8 weeks and revealed normal viability and growth. She was spotting per vagina at 6 weeks and was found of a small subchorionic hemorrhage. Blood type is O+ from previous testing. Onset: Today Onset Date: 07/14/19 Onset Time: 07:00 Duration: Minutes: Location: Reports: Other (Bleeding per vagina--mild) Severity: Mild Improves with: Reports: None Worsens with: Reports: None Context: Denies: Activity, Exercise, Lifting, Sick Contact, Trauma, Other Associated Symptoms: Reports: No Other Symptoms - Related Data Allergies Allergy/AdvReac Type Severity Reaction Status Date / Time Sulfa (Sulfonamide Allergy Hives Verified 06/04/16 07:42 Antibiotics) Home Meds: Home Meds Vit with Ca/FA/Iron [ Plus Iron] 1 tab PO DAILY 06/05/16 [ History] Acetaminophen [Tylenol] 650 mg PO Q6H PRN #50 tablet 06/07/16 [Rx] Ibuprofen [Motrin] 200 - 600 mg PO Q6H #50 tablet 06/07/16 [Rx] Past Medical History SHAPER HAND History: Reports: : 2 Para: 1 (Term vaginal delivery) LMP (Approximate): Other (See Below) (Currently . Last menstrual period April 29, 2019. Ultrasound done at 6 weeks and 8 weeks revealed normal viability.) Psychiatric History: Reports: Anxiety - Past Surgical History HEENT Surgical History: Reports: Oral Surgery Social & Family History - Family History Family Medical History: Noncontributory - Caffeine Use Caffeine Use: Reports: Coffee - Living Situation & Occupation Living situation: Reports: Occupation: Employed ED ROS GENERAL - Review of Systems Review Of Systems: See Below Constitutional: Reports: Malaise, Weakness, Fatigue, Decreased Appetite, Weight Loss. Denies: Fever, Chills HEENT: Reports: No Symptoms Respiratory: Reports: No Symptoms Cardiovascular: Reports: No Symptoms Endocrine: Reports: Fatigue GI/Abdominal: Reports: Diarrhea (Intermittent diarrhea but is getting better.), Nausea, Vomiting (Intermittent nausea and vomiting throughout the so far). Denies: Abdominal Pain : Reports: Frequency Musculoskeletal: Reports: No Symptoms Skin: Reports: No Symptoms Neurological: Reports: No Symptoms Psychiatric: Reports: No Symptoms Hematologic/Lymphatic: Reports: No Symptoms Immunologic: Reports: No Symptoms ED EXAM - Physical Exam Exam: See Below Exam Limited By: No Limitations General Appearance: Alert, Anxious, Mild Distress, Other (Temperature is 36.6. Heart rate 101 and sinus. Respiratory 16 pulse ox 96% on room air BP 123/78.) Eye Exam: Bilateral Eye: Normal Inspection, PERRL Respiratory/Chest: No Respiratory Distress, Lungs Clear, Normal Breath Sounds, No Accessory Muscle Use Cardiovascular: Normal Peripheral Pulses, Regular Rate, Rhythm, No Edema, No Gallop, No Murmur, No Rub GI/Abdominal Exam: Normal Bowel Sounds, Soft, Non-Tender, No Organomegaly, No Abnormal Bruit, No Mass, Pelvis Stable Heart Tones: Not [place] Movement: Not Appreciated Back Exam: Normal Inspection, Full Range of Motion. No: CVA Tenderness (L), CVA Tenderness (R) Extremities: Normal Inspection, Normal Range of Motion, Non-Tender Neurological: Alert, Oriented, CN II-XII Intact, Normal Cognition Psychiatric: Normal Affect, Normal Mood Skin Exam: Warm, Dry, Intact, Normal Color, No Rash Course - Vital Signs Last Recorded V/S: Last Vital Signs Temp 36.6 C 07/14/19 07:46 Pulse 101 H 07/14/19 07:46 Resp 16 07/14/19 07:46 BP 123/78 07/14/19 07:46 Pulse Ox 96 07/14/19 07:46 - Orders/Labs/Meds Orders: Active Orders 24 hr Category Date Time Status Dextrose 5%-0.9% NaCl [Dextrose 5%-Normal Saline] 1,000 Med 07/14/19 08:15 Active ml IV ASDIRECTED Medication Orders Dextrose/Sodium Chloride (Dextrose 5%-Normal Saline) 1,000 mls @ 500 mls/hr IV ASDIRECTED ADE Last Admin: 07/14/19 08:09 Dose: 500 mls/hr Labs: Laboratory Tests 07/14/19 07/14/19 07/14/19 Range/Units 08:19 08:19 08:19 Hgb 12.4 (11.2-15.7) gm/dl Hct 37.3 (34.1-44.9) % Sodium 140 (136-145) mEq/L Potassium 3.4 L (3.5-5.1) mEq/L Chloride 106 (98-107) mEq/L Carbon Dioxide 25 (21-32) mEq/L Anion Gap 12.4 (5-15) BUN 5 L (7-18) mg/dL Creatinine 0.7 (0.55-1.02) mg/dL Est Cr Clr Drug Dosing 109.59 mL/min Estimated GFR (MDRD) > 60 (>60) mL/min BUN/Creatinine Ratio 7.1 L (14-18) Glucose 118 H (74-106) mg/dL Calcium 9.0 (8.5-10.1) mg/dL Magnesium 1.7 L (1.8-2.4) mg/dl Total Bilirubin 0.2 (0.2-1.0) mg/dL AST 14 L (15-37) U/L ALT 18 (14-59) U/L Alkaline Phosphatase 67 (46-116) U/L Total Protein 6.8 (6.4-8.2) g/dl Albumin 3.4 (3.4-5.0) g/dl Globulin 3.4 gm/dL Albumin/Globulin Ratio 1.0 (1-2) HCG, Quant 221233.0 mIU/mL Meds: Medications Generic Name Dose Route Start Last Admin Trade Name Freq PRN Reason Stop Dose Admin Dextrose/Sodium Chloride 1,000 mls @ 500 mls/hr 07/14/19 08:15 07/14/19 08:09 Dextrose 5%-Normal Saline IV 500 mls/hr ASDIRECTED ADE Administration Discontinued Medications Generic Name Dose Route Start Last Admin Trade Name Freq PRN Reason Stop Dose Admin Ondansetron HCl 4 mg 07/14/19 09:46 07/14/19 10:07 Zofran IVPUSH 07/14/19 09:47 4 mg ONETIME ONE Administration - Radiology Interpretation Free Text/Narrative:: 28-year-old female who is 2 para 1 presents to the ED with recurrent bleeding per vagina. She had some bleeding at 6 weeks gestation and have an ultrasound which revealed a small subchorionic hemorrhage but a viable fetus. Checkup subsequently at the 8-week thomas in the clinic revealed a normal single gestation with normal growth from the 6-week thomas. She has had spotting and bleeding per vagina starting this morning about an hour and a half ago. No associated lower abdominal cramping pain. Blood is for the most part fairly bright red with no clots. Blood type is O+ from previous investigations. She will have a recurrent quantitative beta hCG done. IV will be D5 normal saline at 500 mils per hour. Repeat transvaginal ultrasound to be done. - Re-Assessments/Exams Free Text/Narrative Re-Assessment/Exam: 07/14/19 08:38 Hemoglobin is 12.4 and hematocrit is 37.3. 07/14/19 09:34 Chemistry reveals a sodium of 140 potassium slightly low at 3.4. Chloride 106 with a bicarb of 25. Anion gap is 12.4. BUN was 5 with a creatinine of 0.7. Glucose 118 with a calcium of 9.0. Magnesium slightly low at 1.7. Liver function is normal. Quantitative beta-hCG is 135,213 this correlates with a 10 to 12-week . 07/14/19 09:46 ultrasound reveals a single intrauterine gestational sac. Embryo and yolk sac are noted. Areas of subchorionic hemorrhage are appreciated. Cervix is closed with length of 3.3 cm. Maternal ovaries are felt to be within normal limits. Heart rate was 167 bpm. The subchorionic hemorrhage has increased in prominence from previous study. This appears to be the likely source of spotting per vagina. Patient advised at length. Plan will be to allow her to finish up her liter of IV fluids in the ED. She is mildly nauseated at this time and will receive Zofran 4 mg IV. Departure - Departure Time of Disposition: 10:38 Disposition: Home, Self-Care 01 Condition: Fair Clinical Impression: First trimester bleeding, Hyperemesis gravidarum - Discharge Information *PRESCRIPTION DRUG MONITORING PROGRAM REVIEWED*: Not Applicable *COPY OF PRESCRIPTION DRUG MONITORING REPORT IN PATIENT KOBE: Not Applicable Instructions: Vaginal Bleeding During , First Trimester, Morning Sickness, [id number] Referrals: Dallas Vela MD [Primary Care Provider] - Forms: ED Department Discharge Additional Instructions: Evaluation in the emergency room today in regards to sudden onset of bright red bleeding per vagina starting about 0700 hrs. this morning. This is the second time and during this that you have spotted per vagina. Ultrasounds of been done almost every 2 weeks and therefore were able to calculate the gestational age being 10 weeks and 3 days. Heart rate today was 167. There are areas of subchorionic hemorrhage appreciated on ultrasound which were appreciated at the 6-week thomas as well. They are also mildly enlarged as compared to the previous ultrasound and appear to be the source of bleeding. This places you at much higher risk of miscarriage. Treatment is to have plenty of rest at home and not lift anything greater than 10 pounds. Advise no sexual intercourse for the next 2 weeks. No significant exercises that will jostle the uterus etc. You are also given a liter of fluids in the ER as you were scheduled for them in the clinic at any rate due to recurrent vomiting and diarrhea during the . Lab test revealed only minor low potassium at 3.4 with normal being 3.5 or better. This will improve with diet alone. Magnesium was also slightly low at 1.7 with normal being 1.8 or better. This too is supplied in her diet. They are of no consequence. Receive Zofran 4 mg while in the ED as well for nausea relief. Follow-up with Dr. Vela as planned. You would need to return to his office or the ED if you experience significant heavy bleeding per vagina such as soaking a pad per hour for 2 consecutive hours or associated severe lower abdominal cramping pain. Sepsis Event Note - Evaluation Sepsis Screening Result: No Definite Risk - Focused Exam Vital Signs: Vital Signs Temp Pulse Resp BP Pulse Ox 07/14/19 07:46 36.6 C 101 H 16 123/78 96 Date Exam was Performed: 07/14/19 Time Exam was Performed: 10:38 - My Orders Last 24 Hours: My Active Orders 07/14/19 08:15 Dextrose 5%-0.9% NaCl [Dextrose 5%-Normal Saline] 1,000 ml IV ASDIRECTED - Assessment/Plan Last 24 Hours: My Active Orders 07/14/19 08:15 Dextrose 5%-0.9% NaCl [Dextrose 5%-Normal Saline] 1,000 ml IV ASDIRECTED
[2019-07-14] MEDS ORDERED: Dextrose 5%-0.9% NaCl 1,000 ML IV SCH (08:15)
--- NOTE | 2019-07-14 09:34 | US ---
1st trimester obstetrical ultrasound: Multiple real-time images were obtained transabdominally. Comparison: Previous obstetrical ultrasound of 06/28/19. Dates: LMP: LMP given as 04/29/19, TEE 02/03/20, gestational age 10 weeks 6 days Current ultrasound: TEE 02/06/20, gestational age 10 weeks 3 days Earliest ultrasound (06/15/19): TEE 02/08/20, gestational age 10 weeks 1 day Single intrauterine gestational sac is seen. Embryo and yolk sac are noted. Areas of subchorionic hemorrhage are seen. Cervix is closed with length of 3.3 cm. Maternal ovaries are felt to be within normal limits. Measurements: [place]-rump length: 3.50 cm - 10 weeks 3 days Heart rate: 167 bpm Impression: 1. Single intrauterine gestation. Dates as noted above. 2. Areas of subchorionic hemorrhage are seen. This subchorionic hemorrhage has increased in prominence from previous study. Diagnostic code #3 This report was dictated in MDT
[2019-07-14] MEDS ORDERED: Ondansetron 4 MG/2 ML SDV IVPUSH ONE (09:46)
== END 2019-07-14 10:59 | disposition home or self-care (01) ==
LOC: JD.ED 07:36
DX: O20.9 Hemorrhage in early pregnancy, unspecified (principal); O21.0 Mild hyperemesis gravidarum; Z88.2 Allergy status to sulfonamides
CPT/HCPCS: 36415; 76801; 80053; 83735; 84702; 85014; 85018; 96361; 96374; 99284; J2405; J7042; 99283

== ENCOUNTER 2020-02-02 11:50 | Inpatient (IN) | payer BC ==
[~2020-02-02 11:50] MED LIST: Bupivacaine 0.25% 10 ML SDV ONE
[2020-02-02] MEDS ORDERED: Nalbuphine 10 MG/1 ML Vial IVPUSH PRN (11:52)
[2020-02-02] MEDS ORDERED: Sodium Chloride 0.9% 10 ML Syringe FLUSH PRN (11:52)
[2020-02-02] MEDS ORDERED: Lidocaine 1% 50 ML MDV INJECT ONE (11:52)
[2020-02-02] MEDS ORDERED: Ondansetron 4 MG/2 ML SDV IVPUSH PRN ×2 (11:52→15:03)
[2020-02-02] MEDS ORDERED: Oxytocin/Lactated Ringers 10 UNIT/1,000 ML BAG IV SCH ×2 (12:00→13:00)
[2020-02-02] MEDS: Lactated Ringers 1,000 ML IV SCH ×2 (13:05→15:35)
[2020-02-02] MEDS ORDERED: ePHEDrine 50 MG/ML SDV IVPUSH PRN (15:03)
[2020-02-02] MEDS ORDERED: fentaNYL 100 MCG/2 ML SDV EPIDUR PRN (15:03)
--- NOTE | 2020-02-02 15:07 | PCM.PREANE ---
Preanesthetic Assessment - Procedure Proposed Procedure: Epidural - Anesthesia/Transfusion/Family Hx Anesthesia History: Prior Anesthesia Without Reaction Family History of Anesthesia Reaction: No Transfusion History: No Prior Transfusion(s) Intubation History: Unknown - Review of Systems General: No Symptoms Pulmonary: No Symptoms Cardiovascular: No Symptoms, Palpitations (Anxiety), Lightheadedness (with anxiety) Gastrointestinal: No Symptoms (GERD) Neurological: No Symptoms (vertigo), Dizziness (with anxiety) Other: Reports: Easy Bruising, Sinus Problem (seasonal allergies), Anxiety - Physical Assessment NPO Status Date: 02/02/20 NPO Status Time: 13:00 Vital Signs: Last Vital Signs Temp 36.4 C 02/02/20 12:09 Pulse 98 02/02/20 12:09 Resp 15 02/02/20 12:09 BP 123/85 02/02/20 12:09 Pulse Ox 100 02/02/20 12:09 Height: 1.65 m Weight: 78.517 kg ASA Class: 2 Mental Status: Alert & Oriented x3 Airway Class: Mallampati = 2 Dentition: Reports: Normal Dentition (permanent metal retainer noted), Caries Thyro-Mental Finger Breadths: 3 Mouth Opening Finger Breadths: 3 ROM/Head Extension: Full Lungs: Clear to Auscultation, Normal Respiratory Effort Cardiovascular: Regular Rate, Regular Rhythm, No Murmurs - Lab Values: Laboratory Last Values WBC 8.67 K/mm3 (3.98-10.04) 02/02/20 12:09 RBC 3.95 M/mm3 (3.98-5.22) L 02/02/20 12:09 Hgb 11.1 gm/dl (11.2-15.7) L 02/02/20 12:09 Hct 34.9 % (34.1-44.9) 02/02/20 12:09 MCV 88.4 fl (79.4-94.8) D 02/02/20 12:09 MCH 28.1 pg (25.6-32.2) 02/02/20 12:09 MCHC 31.8 g/dl (32.2-35.5) L 02/02/20 12:09 RDW Std Deviation 43.8 fL (36.4-46.3) 02/02/20 12:09 Plt Count 189 K/mm3 (182-369) 02/02/20 12:09 MPV 12.0 fl (9.4-12.3) 02/02/20 12:09 Neut % (Auto) 73.3 % (34.0-71.1) H 02/02/20 12:09 Lymph % (Auto) 17.8 % (19.3-51.7) L 02/02/20 12:09 [place] % (Auto) 6.9 % (4.7-12.5) 02/02/20 12:09 Eos % (Auto) 1.3 (0.7-5.8) 02/02/20 12:09 Baso % (Auto) 0.1 % (0.1-1.2) 02/02/20 12:09 Neut # (Auto) 6.36 K/mm3 (1.56-6.13) H 02/02/20 12:09 Lymph # (Auto) 1.54 K/mm3 (1.18-3.74) 02/02/20 12:09 [place] # (Auto) 0.60 K/mm3 (0.24-0.36) H 02/02/20 12:09 Eos # (Auto) 0.11 K/mm3 (0.04-0.36) 02/02/20 12:09 Baso # (Auto) 0.01 K/mm3 (0.01-0.08) 02/02/20 12:09 SARS-CoV-2 RNA (SUSI) Negative (NEGATIVE) 02/02/20 12:12 Blood Type O POSITIVE 02/02/20 12:09 Gel Antibody Screen Negative 02/02/20 12:09 Above labs reviewed and noted and within acceptable ranges to proceed with epidural if desired - Allergies Allergies/Adverse Reactions: Allergies Allergy/AdvReac Type Severity Reaction Status Date / Time progesterone Allergy Mild Itching Verified 02/02/20 12:00 Sulfa (Sulfonamide Allergy Hives Verified 02/02/20 12:00 Antibiotics) - Anesthesia Plan Pre-Op Medication Ordered: None - Acknowledgements Anesthesia Type Planned: Epidural Pt an Appropriate Candidate for the Planned Anesthesia: Yes Alternatives and Risks of Anesthesia Discussed w Pt/Guardian: Yes Pt/Guardian Understands and Agrees with Anesthesia Plan: Yes PreAnesthesia Questionnaire PRINTING TABLE HAND History: Reports: Psychiatric History: Reports: Anxiety - Past Surgical History HEENT Surgical History: Reports: Oral Surgery Other HEENT Surgeries/Procedures: Parn[place] Teeth - SUBSTANCE USE Tobacco Use Status *Q: Never Tobacco User Second Hand Smoke Exposure: No Recreational Drug Use History: No - HOME MEDS Home Medications: Home Meds Vit with Ca/FA/Iron [ Plus Iron] 1 tab PO DAILY 06/05/16 [History] - CURRENT (IN HOUSE) MEDS Current Meds: Current Medications Oxytocin/Lactated Ringer's (Pitocin In Lr 10 Units/1,000 Ml) 10 unit in 1,000 mls @ 500 mls/hr IV .CONTINUOUS ADE Lactated Ringer's (Ringers, Lactated) 1,000 mls @ 100 mls/hr IV ASDIRECTED ADE Last Admin: 02/02/20 13:05 Dose: 100 mls/hr Documented by: Oxytocin/Lactated Ringer's (Pitocin In Lr 10 Units/1,000 Ml) 10 unit in 1,000 mls @ 12 mls/hr IV TITRATE ADE; Protocol Last Titration: 02/02/20 14:40 Dose: 6 munits/min, 36 mls/hr Documented by: Nalbuphine HCl (Nubain) 10 mg IVPUSH Q2H PRN PRN Reason: Pain Ondansetron HCl (Zofran) 4 mg IVPUSH Q4H PRN PRN Reason: Nausea/Vomiting Sodium Chloride (Saline Flush) 10 ml FLUSH ASDIRECTED PRN PRN Reason: Keep Vein Open Discontinued Medications Lidocaine HCl (Xylocaine 1%) 50 ml INJECT ONETIME ONE Stop: 02/02/20 11:53
[2020-02-02] MEDS ORDERED: Bupivacaine/fentaNYL/NS 100 ML Bag EPIDUR SCH (15:15)
--- NOTE | 2020-02-02 20:15 | PCM.LDHP ---
L&D History of Present Illness - General Date of Service: 02/02/20 Admit Problem/Dx: Patient Status Order with Admit Dx/Problem 02/02/20 11:52 Patient Status [ADT] Routine Admission Diagnosis/Problem Admission Diagnosis/Problem 02/02/20 20:07 Janny is a 29-year-old 2 para 1-0-0-1 white female admitted on the afternoon of 02/02/2020 at 39 and 1/7 weeks gestational age with an TEE of 02/07 for elective induction of labor. Source of Information: Patient History Limitations: Reports: No Limitations - History of Present Illness Introduction:: Janny is a 29-year-old 2 para 1-0-0-1 white female admitted on the afternoon of 02/02/2020 at 39 and 1/7 weeks gestational age with an TEE of 02/08/2020 for elective induction of labor. The process have been described to patient and she was wishing to proceed. Pitocin was started and continued on till the head was brought down well against the cervix. At 2+ centimeters, 70% effaced, -2 station, mid position, soft and cephalic presentation the patient underwent AROM with resultant clear amniotic fluid. She then proceeded to intensify her labor. She had an epidural placed for labor analgesia. 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 Patient menarche at age 14. Cycles q. months. No control at the time of conception. Last menstrual period was fairly certain at 04/29/2019. Her 6-week ultrasound is the dating parameter use for her TEE and is supported by multiple ultrasounds done later in the . Patient denies any significant Paps or abnormalities or STIs. Her previous obstetric history includes the followin. Male infant born 06/05/2014 at 39-5/7 weeks gestational age after 36 hours of labor. 7 pound 9 ounce male named Tomi. He was born via NSVDhad an epidural in labor, born at [facility] in [place]. course: Patient was seen at 607 weeks gestational age at which time she was evaluated ultrasound which gave a due date of 02/08/2020. She was seen on a very regular basis during the course of . Weight gain was from 160 to 174.4 pounds. Fundal height growth was appropriate. No concerns were noted. Patient had an MFM consult because of abnormal ultrasound. Questionable foot abnormality choroid plexus cyst. Not confirmed. She is group B strep negative. Flu vaccination was done on 12/08/2019. She had mild anemia in . She is planning an epidural in labor and delivery. Laboratory testing shows blood to be O+ with a negative antibody screen. Initial labs showed hemoglobin of 13.6 g/dL. Platelets 222,000. Pap smear was negative HPV negative. Rubella showed immunity. RPR is nonreactive. Urine culture was negative. GC and Chlamydia were negative. Hepatitis B surface antigen and HIV assays were both negative. Second trimester labs showed hemoglobin mildly decreased at 11.0 g/dL and platelets were 204, 000. Patient was started on ferrous sulfate 3 and 25 mg p.o. daily at that time. 1 hour glucose was normal at 101. Group B strep screen came back negative. Allergies: 1. Sulfa which causes hives 2. Penicillin which causes a rash. Medications: 1. Ferrous sulfate 3 and 25 mg p.o. daily 2. vitamins 1 p.o. daily Past medical history: 1. times 02/2016 Past surgical history: Unremarkable Family history: Fallopian tube cancer in patient's mother. Patient's grandmother with ovarian cancer. No anesthesia, bleeding, blood clotting problems noted in the family. Social history: Patient is . is Cezar. They live in [place], [place]. She is works in branch office administrator. She has had some college education. She does not use any significant muscle alcohol, drugs or tobacco. Review of systems: In general patient has no complaints. Baby has been active. No significant plaints of contractions or loss of fluid. Skin: Negative Lungs: No infectious symptoms or shortness of breath Cardiovascular: No chest pain or exercise intolerance Breasts: No lumps, changes in size, pain, dimpling, discharge or axillary or supraclavicular concerns. GI: Negative : Body habitus changes associated with . Musculoskeletal: Negative Neurological: Negative Physical exam: In general the patient is well-developed, well-nourished, pleasant female of stated age in no acute distress. On last evaluation in clinic on 01/31/2020 patient's blood pressure 103/55. Weight was 174 with a pregravid with weight of 160. Height is 5 feet 5 inches. Pregravid body mass index is 26.8. heart rate was 138 at that time. Skin is warm dry without lesions. HEENT, neck and back within normal limits. Lungs are clear with good breath sounds in all lung rai. Cardiovascular exam shows regular and rhythm without murmurs. Exam is deferred have been done at first annual visit found to be normal. Abdomen is gravid with last fundal height in clinic 37 cm of the baby in vertex presentation.. Genital as per digital exam is as above in the HPI. Extremities and neurological exam are grossly within normal limits. 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: Psychiatric History: Reports: Anxiety - Past Surgical History HEENT Surgical History: Reports: Oral Surgery Other HEENT Surgeries/Procedures: [place] Teeth Social & Family History - Family History Family Medical History: No Pertinent Family History - Tobacco Use Tobacco Use Status *Q: Never Tobacco User Second Hand Smoke Exposure: No - Caffeine Use Caffeine Use: Reports: None - Recreational Drug Use Recreational Drug Use: No - Living Situation & Occupation Living situation: Reports: Occupation: Employed H&P Review of Systems - Review of Systems: Review Of Systems: See Below L&D Exam - Exam Exam: See Below - Vital Signs Vital Signs: Last Vital Signs Temp 36.4 C 02/02/20 12:09 Pulse 98 02/02/20 12:09 Resp 15 02/02/20 12:09 BP 123/85 02/02/20 12:09 Pulse Ox 100 02/02/20 12:09 Weight: 78.517 kg - Patient Data Lab Results Last 24 hrs: Laboratory Results - last 24 hr 02/02/20 02/02/20 02/02/20 Range/Units 12:09 12:09 12:12 WBC 8.67 (3.98-10.04) K/mm3 RBC 3.95 L (3.98-5.22) M/mm3 Hgb 11.1 L (11.2-15.7) gm/dl Hct 34.9 (34.1-44.9) % MCV 88.4 D (79.4-94.8) fl MCH 28.1 (25.6-32.2) pg MCHC 31.8 L (32.2-35.5) g/dl RDW Std Deviation 43.8 (36.4-46.3) fL Plt Count 189 (182-369) K/mm3 MPV 12.0 (9.4-12.3) fl Neut % (Auto) 73.3 H (34.0-71.1) % Lymph % (Auto) 17.8 L (19.3-51.7) % [place] % (Auto) 6.9 (4.7-12.5) % Eos % (Auto) 1.3 (0.7-5.8) Baso % (Auto) 0.1 (0.1-1.2) % Neut # (Auto) 6.36 H (1.56-6.13) K/mm3 Lymph # (Auto) 1.54 (1.18-3.74) K/mm3 [place] # (Auto) 0.60 H (0.24-0.36) K/mm3 Eos # (Auto) 0.11 (0.04-0.36) K/mm3 Baso # (Auto) 0.01 (0.01-0.08) K/mm3 SARS-CoV-2 RNA (SUSI) Negative (NEGATIVE) Blood Type O POSITIVE Gel Antibody Screen Negative Result Diagrams: 02/02/20 12:09 Problem List Initiated/Reviewed/Updated: Yes Orders Last 24hrs: Active Orders 24 hr Category Date Time Status Patient Status [ADT] Routine ADT 02/02/20 11:52 Active Activity as Tolerated [RC] PFP Care 02/02/20 11:52 Active Communication Order [RC] ASDIRECTED Care 02/02/20 11:52 Active Heart Tones [RC] ASDIRECTED Care 02/02/20 11:53 Active Non Stress Test [RC] PER UNIT ROUTINE Care 02/02/20 11:52 Active Notify Provider [RC] ASDIRECTED Care 02/02/20 15:03 Active Notify Provider [RC] PFP Care 02/02/20 11:52 Active Notify Provider [RC] PRN Care 02/02/20 11:52 Active Oxygen Therapy [RC] ASDIRECTED Care 02/02/20 15:03 Active Peripheral IV Care [RC] . DIRECTED Care 02/02/20 11:53 Active Pulse Oximetry [RC] ASDIRECTED Care 02/02/20 15:03 Active Vital Signs [RC] PER UNIT ROUTINE Care 02/02/20 11:52 Active Regular Diet [DIET] Diet 02/02/20 Lunch Active RAPID PLASMA REAGIN,RPR [CHEM] Routine Lab 02/02/20 12:09 Received Bupivacaine/fentaNYL/NS [fentaNYL/Bupivacaine/NS 2 MCG- Med 02/02/20 15:15 Active 0.125% 100 ML] 100 ml EPIDUR ASDIRECTED Lactated Ringers [Ringers, Lactated] 1,000 ml Med 02/02/20 12:00 Active IV ASDIRECTED Nalbuphine [Nubain] Med 02/02/20 11:52 Active 10 mg IVPUSH Q2H PRN Ondansetron [Zofran] Med 02/02/20 15:03 Active 4 mg IVPUSH ONETIME PRN Ondansetron [Zofran] Med 02/02/20 11:52 Active 4 mg IVPUSH Q4H PRN Oxytocin/Lactated Ringers [Pitocin in LR 10 Units/1,000 Med 02/02/20 12:00 Active ML] 10 unit in 1,000 ml IV .CONTINUOUS Oxytocin/Lactated Ringers [Pitocin in LR 10 Units/1,000 Med 02/02/20 13:00 Active ML] 10 unit in 1,000 ml IV TITRATE Sodium Chloride 0.9% [Saline Flush] Med 02/02/20 11:52 Active 10 ml FLUSH ASDIRECTED PRN ePHEDrine [ePHEDrine sulfate] Med 02/02/20 15:03 Active 5 mg IVPUSH ASDIRECTED PRN fentaNYL [Sublimaze] Med 02/02/20 15:03 Active 100 mcg EPIDUR Q3H PRN Electronic Heart Tones Ext w TOCO [WOMSER] Oth 02/02/20 11:52 Ordered Routine Electronic Heart Tones Internal [WOMSER] Per Unit Oth 02/02/20 11:52 Ordered Routine Peripheral IV Insertion Adult [OM.PC] Routine Oth 02/02/20 11:52 Ordered Resuscitation Status Routine Resus Stat 02/02/20 11:52 Ordered Medication Orders Ephedrine Sulfate (Ephedrine Sulfate) 5 mg IVPUSH ASDIRECTED PRN PRN Reason: Hypotension Fentanyl (Sublimaze) 100 mcg EPIDUR Q3H PRN PRN Reason: Pain Last Admin: 02/02/20 15:25 Dose: 100 mcg Documented by: FRANCO Fentanyl/Bupivacaine HCl (Fentanyl/Bupivacaine/Ns 2 Mcg-0.125% 100 Ml) 100 ml EPIDUR ASDIRECTED ADE Last Admin: 02/02/20 15:26 Dose: 100 ml Documented by: FRANCO Oxytocin/Lactated Ringer's (Pitocin In Lr 10 Units/1,000 Ml) 10 unit in 1,000 mls @ 500 mls/hr IV .CONTINUOUS ADE Lactated Ringer's (Ringers, Lactated) 1,000 mls @ 100 mls/hr IV ASDIRECTED ADE Last Admin: 02/02/20 15:35 Dose: 100 mls/hr Documented by: Infusion: 02/02/20 15:35 Dose: 100 mls/hr Documented by: Admin: 02/02/20 13:05 Dose: 100 mls/hr Documented by: ANAI Oxytocin/Lactated Ringer's (Pitocin In Lr 10 Units/1,000 Ml) 10 unit in 1,000 mls @ 12 mls/hr IV TITRATE ADE; Protocol Last Titration: 02/02/20 19:47 Dose: 166.5 munits/min, 999 mls/hr Documented by: Titration: 02/02/20 19:42 Dose: 0 munits/min, 0 mls/hr Documented by: Titration: 02/02/20 17:48 Dose: 14 munits/min, 84 mls/hr Documented by: Titration: 02/02/20 16:40 Dose: 10 munits/min, 60 mls/hr Documented by: Titration: 02/02/20 16:09 Dose: 8 munits/min, 48 mls/hr Documented by: Titration: 02/02/20 14:40 Dose: 6 munits/min, 36 mls/hr Documented by: Titration: 02/02/20 13:57 Dose: 5 munits/min, 30 mls/hr Documented by: Titration: 02/02/20 13:45 Dose: 4 munits/min, 24 mls/hr Documented by: Admin: 02/02/20 13:06 Dose: 2 munits/min, 12 mls/hr Documented by: ANAI Nalbuphine HCl (Nubain) 10 mg IVPUSH Q2H PRN PRN Reason: Pain Ondansetron HCl (Zofran) 4 mg IVPUSH Q4H PRN PRN Reason: Nausea/Vomiting Ondansetron HCl (Zofran) 4 mg IVPUSH ONETIME PRN PRN Reason: Nausea/Vomiting Sodium Chloride (Saline Flush) 10 ml FLUSH ASDIRECTED PRN PRN Reason: Keep Vein Open Assessment/Plan Comment:: 1. 39-1/7-week intrauterine with an TEE of 02/08/2020 admitted for elective induction of labor 2. Group B strep screen negative 3. Patient desiring epidural in labor delivery 4. Patient is desiring to breast-feed. 5. History of choroid plexus cyst and questionable ankle/foot abnormal itynot confirmed 6. History of allergies to sulfa and penicillin 7. Flu shot given on 12/08/2019 and Tdap given on 12/16/2019. She is rubella immune. Plan: 1. Pitocin induction with AROM augmentation of labor as indicated. The procedure, risk, benefits, terms of care including alternative care line for natural onset of labor all discussed with patient. Appears understand and wishes to proceed. 2. Epidural as needed per patient desire 3. Support breast-feeding decision 4. Admission labs consist of Covid19, CBC, RPR 5. Routine labor care.
--- NOTE | 2020-02-02 20:24 | PCM.SN.2 ---
- Free Text/Narrative Note: Janny is a 29-year-old 2 para 1-0-0-1 white female admitted on the afternoon of 02/02/2020 at 39 and 1/7 weeks gestational age with an TEE of 02/08/2020 for elective induction of labor. Progressed rapidly after AROM. She had an epidural in place for labor analgesia and this worked very well for her. She became complete at approximately 1940 hrs. on 02/02/2020. She then proceeded with gentle downward traction on the head to deliver the shoulders and to deliver a viable, hernandez, female with Apgars of 8 and 9, a weight of 3040 g (6 pounds 11.2 ounces) and a length of 20.0 inches. She delivered in a direct occiput anterior position. The baby was placed on mom's abdomen and dried with warm blanket. Nose and mouth were bulb suction. The umbilical cord was allowed to pulsate for approximately 3 minutes and was clamped x2 and cut by the baby's Father Cezar. Cord blood was obtained. The umbilical cord had 3 vessels. Small first-degree perineal laceration was repaired with a short running suture of 3-0 Monocryl. Patient tolerated this well and labor epidural analgesia was used for perineal laceration repair anesthesia. The placenta delivered in a William presentation, appeared intact and complete and was discarded per patient desire. Delivery of the placenta was at 1953 hrs. Patient plans to breast-feed. Estimated blood loss was 100 cc. Condition: Good.
[2020-02-02] MEDS ORDERED: Witch Hazel Medicated Pads 40/Jar TOP PRN (21:30)
[2020-02-02] MEDS ORDERED: Benzocaine/Menthol 20%-0.5% Spray 56 GM Canister TOP PRN (21:30)
[2020-02-03] MEDS: Ibuprofen 600 MG Tab PO PRN ×5 (02:12→20:42)
[2020-02-03] MEDS: Docusate Sodium 100 MG Cap PO PRN ×2 (02:13→16:29)
[2020-02-03] MEDS: Acetaminophen 325 MG Tab PO PRN ×4 (04:35→22:34)
[2020-02-03] MEDS: Prenatal Multivitamin with Calcium/Folic Acid/Iron Tab PO SCH (11:06)
[2020-02-03] MEDS: Sertraline 50 MG Tab PO SCH (11:06)
[2020-02-03] MEDS: Ferrous Sulfate 324 MG Tab.EC PO SCH (11:06)
--- NOTE | 2020-02-03 13:10 | PCM.SN.2 ---
- Free Text/Narrative Note: note: Patient is doing well in the period. Minimal lochia, voiding well, ambulated without problems. Nursing without concerns. Patient is afebrile, vital signs are stable Abdomen is flat, soft, uterus is below the umbilicus and is firm and nontender. Legs are nontender. Assessment: recovery going well. Plan: Routine care. Patient be discharged home within the next 24-48 hours.
--- NOTE | 2020-02-03 14:22 | PCM48HPAN ---
Post Anesthesia Note - EVALUATION WITHIN 48HRS OF ANESTHETIC Vital Signs in Normal Range: Yes Patient Participated in Evaluation: Yes Respiratory Function Stable: Yes Airway Patent: Yes Cardiovascular Function Stable: Yes Hydration Status Stable: Yes Pain Control Satisfactory: Yes Nausea and Vomiting Control Satisfactory: Yes Mental Status Recovered: Yes Vital Signs: Last Vital Signs Temp 36.5 C 02/03/20 07:32 Pulse 71 02/03/20 07:32 Resp 15 02/03/20 07:32 BP 102/71 02/03/20 07:32 Pulse Ox 98 02/03/20 07:32
[2020-02-04] MEDS: Ibuprofen 600 MG Tab PO PRN ×2 (01:20→05:52)
--- NOTE | 2020-02-04 06:58 | PCM.DCSUM1 ---
Discharge Summary - Hospital Course Free Text/Narrative:: Janny is a 29-year-old 2 para 1-0-0-1 white female admitted on the afternoon of 02/02/2020 at 39 and 1/7 weeks gestational age with an TEE of 02/08/2020 for elective induction of labor. Progressed rapidly after AROM. She had an epidural in place for labor analgesia and this worked very well for her. She became complete at approximately 1940 hrs. on 02/02/2020. She then proceeded with gentle downward traction on the head to deliver the shoulders and to deliver a viable, hernandez, female with Apgars of 8 and 9, a weight of 3040 g (6 pounds 11.2 ounces) and a length of 20.0 inches. She delivered in a direct occiput anterior position. The baby was placed on mom's abdomen and dried with warm blanket. Nose and mouth were bulb suction. The umbilical cord was allowed to pulsate for approximately 3 minutes and was clamped x2 and cut by the baby's Father Cezar. Cord blood was obtained. The umbilical cord had 3 vessels. Small first-degree perineal laceration was repaired with a short running suture of 3-0 Monocryl. Patient tolerated this well and labor epidural analgesia was used for perineal laceration repair anesthesia. The placenta delivered in a William presentation, appeared intact and complete and was discarded per patient desire. Delivery of the placenta was at 1953 hrs. Patient plans to breast-feed. Estimated blood loss was 100 cc. Patient has done well. She is recovered from her epidural. She is ambulating well, nursing without problems and voiding without concerns. She is desiring discharge home. Condition: Good. Diagnosis: Stroke: No - Discharge Data Discharge Date: 02/04/20 Discharge Disposition: Home, Self-Care 01 Condition: Good - Referral to Home Health Primary Care Physician: Christian Weston MD - Patient Instructions Diet: Regular Diet as Tolerated (Nursing diet with increased calories and calcium is recommended) Activity: As Tolerated (No intercourse or tampons until bleeding resolves) Driving: May Drive Today Showering/Bathing: May Shower Showering/Bathing, Other: May take a bath Notify Provider of: Fever, Increased Pain, Swelling and Redness, Nausea and/or Vomiting - Discharge Plan Home Medications: Home Meds Vit with Ca/FA/Iron [ Plus Iron] 1 tab PO DAILY 06/05/16 [History] Acetaminophen [Tylenol] 650 mg PO Q4H PRN tablet 02/04/20 [Rx] Ferrous Sulfate 324 mg PO WITHBREAKFAST tab.ec 02/04/20 [Rx] Ibuprofen [Motrin] 600 mg PO Q4H PRN tablet 02/04/20 [Rx] Sertraline [Zoloft] 50 mg PO DAILY tablet 02/04/20 [Rx] Referrals: Christian Weston MD [Primary Care Provider] - (Return to clinicDr. Weston2 weeks.) - Discharge Summary/Plan Comment DC Time >30 min.: No Discharge Summary/Plan Comment: Discharge instructions: 1. Discharge home 2. Diet, activity and follow-up discussed with patient. Recommend nursing diet with increased calories and calcium. 3. Precautions given concern increased pain, bleeding, temperature, signs/symptoms of DVT/PE. 4. Medications per home medication was printed, discussed with and given to the patient. 5. Return to clinic-[facility]. Weston[facility] in 2 weeks. Diagnosis: 1. Term -delivered 2. History of depressionrestarted on an SSRIsertraline Condition: Good - Patient Data Vitals - Most Recent: Last Vital Signs Temp 36.6 C 02/04/20 05:50 Pulse 69 02/04/20 05:50 Resp 15 02/03/20 20:45 BP 116/76 02/04/20 05:50 Pulse Ox 99 02/04/20 05:50 Weight - Most Recent: 78.517 kg I&O - Last 24 hours: Intake & Output 02/03/20 02/03/20 02/04/20 14:59 22:59 06:59 Intake Total 300 240 Balance 300 240 Med Orders - Current: Current Medications Acetaminophen (Tylenol) 650 mg PO Q4H PRN PRN Reason: mild pain or fever Last Admin: 02/03/20 22:34 Dose: 650 mg Documented by: Benzocaine/Menthol (Dermoplast Pain Relief Francis) 0 gm TOP ASDIRECTED PRN PRN Reason: Perineal Comfort Measure Last Admin: 02/02/20 21:58 Dose: 1 can Documented by: Docusate Sodium (Colace) 100 mg PO BID PRN PRN Reason: Constipation Last Admin: 02/03/20 16:29 Dose: 100 mg Documented by: Ferrous Sulfate (Ferrous Sulfate) 324 mg PO WITHBREAKFAST ADE Last Admin: 02/03/20 11:06 Dose: 324 mg Documented by: Ibuprofen (Motrin) 600 mg PO Q4H PRN PRN Reason: Mild pain or fever Last Admin: 02/04/20 05:52 Dose: 600 mg Documented by: Prenat Multivit/Air Director/Iron/Folic Ac ( Plus Iron) 1 each PO DAILY ADE Last Admin: 02/03/20 11:06 Dose: 1 each Documented by: Sertraline HCl (Zoloft) 50 mg PO DAILY ADE Last Admin: 02/03/20 11:06 Dose: 50 mg Documented by: [facility] pad TOP ASDIRECTED PRN PRN Reason: Perineal Comfort Measure Last Admin: 02/02/20 21:57 Dose: 1 container Documented by: Discontinued Medications Bupivacaine HCl (Sensorcaine-Mpf 0.25%) 10 ml .ROUTE .[facility] ONE Stop: 02/02/20 00:01 Ephedrine Sulfate (Ephedrine Sulfate) 5 mg IVPUSH ASDIRECTED PRN PRN Reason: Hypotension Fentanyl (Sublimaze) 100 mcg EPIDUR Q3H PRN PRN Reason: Pain Last Admin: 02/02/20 15:25 Dose: 100 mcg Documented by: Fentanyl/Bupivacaine HCl (Fentanyl/Bupivacaine/Ns 2 Mcg-0.125% 100 Ml) 100 ml EPIDUR ASDIRECTED [facility] Last Admin: 02/02/20 15:26 Dose: 100 ml Documented by: Oxytocin/Lactated Ringer's (Pitocin In Lr 10 Units/1,000 Ml) 10 unit in 1,000 mls @ 500 mls/hr IV .CONTINUOUS ADE Lactated Ringer's (Ringers, Lactated) 1,000 mls @ 100 mls/hr IV ASDIRECTED ADE Last Admin: 02/02/20 15:35 Dose: 100 mls/hr Documented by: Oxytocin/Lactated Ringer's (Pitocin In Lr 10 Units/1,000 Ml) 10 unit in 1,000 mls @ 12 mls/hr IV TITRATE ADE; Protocol Last Titration: 02/02/20 19:47 Dose: 166.5 munits/min, 999 mls/hr Documented by: Lidocaine HCl (Xylocaine 1%) 50 ml INJECT ONETIME ONE Stop: 02/02/20 11:53 Last Admin: 02/03/20 03:01 Dose: Not Given Documented by: Miscellaneous Medication (Phenylephrine 1 Mg/10 Ml-Ns) 0 mg IVPUSH ONETIME ONE Stop: 02/02/20 15:04 Last Admin: 02/03/20 03:01 Dose: Not Given Documented by: Nalbuphine HCl (Nubain) 10 mg IVPUSH Q2H PRN PRN Reason: Pain Ondansetron HCl (Zofran) 4 mg IVPUSH Q4H PRN PRN Reason: Nausea/Vomiting Ondansetron HCl (Zofran) 4 mg IVPUSH ONETIME PRN PRN Reason: Nausea/Vomiting Sodium Chloride (Saline Flush) 10 ml FLUSH ASDIRECTED PRN PRN Reason: Keep Vein Open
[2020-02-04] MEDS: Ferrous Sulfate 324 MG Tab.EC PO SCH (07:45)
[2020-02-04] MEDS: Acetaminophen 325 MG Tab PO PRN (07:45)
[2020-02-04] MEDS: Docusate Sodium 100 MG Cap PO PRN (07:54)
[2020-02-04] MEDS: Prenatal Multivitamin with Calcium/Folic Acid/Iron Tab PO SCH (08:33)
[2020-02-04] MEDS: Sertraline 50 MG Tab PO SCH (08:33)
[2020-02-04 10:25] VITALS: BP 123/66; PULSE 59
== END 2020-02-04 10:20 | disposition home or self-care (01) | DRG 560 ==
LOC: JD.OB 11:50 → OBSVTOIN 19:47 → JD.OB 19:47
PROVIDERS: ADMIT Obstetrics & Gynecology; ATTEND Obstetrics & Gynecology
PROC: 10E0XZZ Delivery of Products of Conception, External Approach (ICD-10-PCS; principal; 2020-02-02)
PROC: 10907ZC Drainage of Amniotic Fluid, Therapeutic from Products of Conception, Via Natural or Artificial Opening (ICD-10-PCS; 2020-02-02)
PROC: 3E033VJ Introduction of Other Hormone into Peripheral Vein, Percutaneous Approach (ICD-10-PCS; 2020-02-02)
PROC: 0HQ9XZZ Repair Perineum Skin, External Approach (ICD-10-PCS; 2020-02-02)
PROC: 3E0R3BZ Introduction of Anesthetic Agent into Spinal Canal, Percutaneous Approach (ICD-10-PCS; 2020-02-02)
PROC: 00HU33Z Insertion of Infusion Device into Spinal Canal, Percutaneous Approach (ICD-10-PCS; 2020-02-02)
DX: O70.0 First degree perineal laceration during delivery (principal); Z37.0 Single live birth; Z3A.39 39 weeks gestation of pregnancy; Z20.828 Contact with and (suspected) exposure to other viral communicable diseases; Z88.2 Allergy status to sulfonamides
CPT/HCPCS: 01967; 36415; 51703; 59025; 59409; 85025; 86592; 86850; 86900; 86901; A9270-GY; J2590; J3010; J3490; J7120; U0002

== ENCOUNTER 2021-04-19 18:15 | Inpatient (IN) | payer BC ==
[~2021-04-19 18:15] MED LIST changes: -Bupivacaine 0.25% 10 ML SDV ONE; +Lidocaine 1% 10 ML MDV ONE
[2021-04-19] MEDS ORDERED: Nalbuphine 10 MG/1 ML Vial IVPUSH PRN (18:48)
[2021-04-19] MEDS ORDERED: Ondansetron 4 MG/2 ML SDV IVPUSH PRN (18:48)
[2021-04-19] MEDS ORDERED: Sodium Chloride 0.9% 10 ML Syringe FLUSH PRN (18:48)
[2021-04-19] MEDS ORDERED: Calcium Carbonate 500 MG Tab.Chew PO PRN (18:48)
[2021-04-19] MEDS ORDERED: Oxytocin/Lactated Ringers 10 UNIT/1,000 ML BAG IV SCH ×2 (19:00)
[2021-04-19] MEDS: Lactated Ringers 1,000 ML IV SCH ×3 (19:44→21:28)
[2021-04-19] MEDS ORDERED: diphenhydrAMINE 50 MG/ML SDV IVPUSH PRN (20:03)
[2021-04-19] MEDS ORDERED: ePHEDrine 50 MG/ML SDV IVPUSH PRN (20:03)
[2021-04-19] MEDS ORDERED: fentaNYL 100 MCG/2 ML SDV EPIDUR PRN (20:03)
[2021-04-19] MEDS ORDERED: Bupivacaine/fentaNYL/NS 100 ML Bag EPIDUR PRN (20:03)
[2021-04-19] MEDS ORDERED: Sodium Chloride 0.9% 10 ML Syringe FLUSH SCH (21:00)
[2021-04-19] MEDS ORDERED: Witch Hazel Medicated Pads 40/Jar TOP PRN (23:09)
[2021-04-19] MEDS ORDERED: Docusate Sodium 100 MG Cap PO PRN (23:09)
[2021-04-19] MEDS: Benzocaine/Menthol 20%-0.5% Spray 78 GM Cannister TOP PRN (23:38)
[2021-04-19] MEDS: Ibuprofen 600 MG Tab PO PRN (23:39)
[2021-04-20] MEDS: Ibuprofen 600 MG Tab PO PRN ×3 (04:14→17:15)
[2021-04-20] MEDS: Ferrous Sulfate 324 MG Tab.EC PO SCH ×2 (07:33→17:14)
[2021-04-20] MEDS: Prenatal Multivitamin with Calcium/Folic Acid/Iron Tab PO SCH ×2 (07:34→10:39)
[2021-04-20] MEDS: Acetaminophen 325 MG Tab PO PRN ×3 (07:35→20:39)
[2021-04-21] MEDS: Ibuprofen 600 MG Tab PO PRN ×2 (02:38→06:30)
[2021-04-21 03:17] VITALS: BP 127/67; PULSE 58
[2021-04-21] MEDS: Ferrous Sulfate 324 MG Tab.EC PO SCH (06:31)
[2021-04-21] MEDS: Benzocaine/Menthol 20%-0.5% Spray 78 GM Cannister TOP PRN (08:30)
== END 2021-04-21 08:53 | disposition home or self-care (01) | DRG 560 ==
LOC: JD.OBCHECK 18:15 → JD.OB 18:16 → JD.OBCHECK 18:48 → JD.OB 18:49 → OBSVTOIN 22:16 → JD.OB 22:17
PROVIDERS: ADMIT Obstetrics & Gynecology; ATTEND Obstetrics & Gynecology
PROC: 0KQM0ZZ Repair Perineum Muscle, Open Approach (ICD-10-PCS; principal; 2021-04-19)
PROC: 10E0XZZ Delivery of Products of Conception, External Approach (ICD-10-PCS; principal; 2021-04-19)
PROC: 10907ZC Drainage of Amniotic Fluid, Therapeutic from Products of Conception, Via Natural or Artificial Opening (ICD-10-PCS; principal; 2021-04-19)
PROC: 3E0R3BZ Introduction of Anesthetic Agent into Spinal Canal, Percutaneous Approach (ICD-10-PCS; principal; 2021-04-19)
PROC: 00HU33Z Insertion of Infusion Device into Spinal Canal, Percutaneous Approach (ICD-10-PCS; principal; 2021-04-19)
DX: O70.1 Second degree perineal laceration during delivery (principal); Z3A.39 39 weeks gestation of pregnancy; Z37.0 Single live birth; Z20.822 Contact with and (suspected) exposure to COVID-19
CPT/HCPCS: 01967; 36415; 51701; 59025; 59409; 85025; 86592; 93005; A9270-GY; J2590; J3010; J7120; U0002

== ENCOUNTER 2024-12-06 10:01 | Inpatient (IN) | payer BC ==
[2024-12-06] MEDS ORDERED: Ondansetron 4 MG/2 ML SDV IVPUSH PRN (10:36)
[2024-12-06] MEDS ORDERED: Nalbuphine 10 MG/1 ML Vial IVPUSH PRN (10:36)
[2024-12-06] MEDS ORDERED: Sodium Chloride 0.9% 10 ML Syringe FLUSH PRN (10:36)
[2024-12-06] MEDS ORDERED: Oxytocin/0.9 % Sodium Chloride 30 UNIT/500 ML BAG IV SCH (10:45)
[2024-12-06 10:48] LABS: BASOPHILS ABSOLUTE AUTO 0.0 K/mm3 (0.0-0.2); BASOPHILS PERCENT AUTO 0.4 % (0.0-1.0); EOSINOPHILS ABSOLUTE AUTO 0.1 K/mm3 (0.0-0.4); EOSINOPHILS PERCENT AUTO 0.9 % (0.0-6.0); IMMATURE GRAN ABSOLUTE AUTO 0.14 K/mm3 (0.00-0.05); IMMATURE GRAN PERCENT AUTO 1.8 % (0.0-0.4); LYMPHOCYTES ABSOLUTE AUTO 1.3 K/mm3 (1.0-4.8); LYMPHOCYTES PERCENT AUTO 16.4 % (24.0-44.0); MEAN PLATELET VOLUME 11.9 fl (9.4-12.3); MONOCYTES ABSOLUTE AUTO 0.7 K/mm3 (0.0-0.8); MONOCYTES PERCENT AUTO 8.7 % (0.0-8.0); NEUTROPHILS ABSOLUTE AUTO 5.5 K/mm3 (1.8-7.7); NEUTROPHILS PERCENT AUTO 71.8 % (41.0-71.0); NRBC ABSOLUTE 0.00 (0.00-0.02); NRBC PERCENT 0.0 % (0.0-0.2); PLATELET COUNT,PLT 171 K/mm3 (150-400); RED BLOOD CELL COUNT 3.96 M/mm3 (4.10-5.30); WHITE BLOOD CELL COUNT,WBC 7.68 K/mm3 (3.9-11.3)
[2024-12-06] MEDS: Oxytocin/0.9 % Sodium Chloride 30 UNIT/500 ML BAG IV SCH (11:12)
[2024-12-06] MEDS: Lactated Ringers 1,000 ML IV SCH (11:13)
[2024-12-06] MEDS ORDERED: ePHEDrine 50 MG/ML SDV IVPUSH PRN (17:53)
[2024-12-06] MEDS ORDERED: diphenhydrAMINE 50 MG/ML SDV IVPUSH PRN (17:53)
[2024-12-06] MEDS: Bupivacaine/fentaNYL/NS 100 ML Bag EPIDUR PRN (18:04)
[2024-12-06] MEDS: Benzocaine/Menthol 20%-0.5% Spray 78 GM Cannister TOP PRN (21:41)
[2024-12-06] MEDS: Witch Hazel Medicated Pads 40/Jar TOP PRN (21:42)
[2024-12-07] MEDS: Sodium Chloride 0.9% 10 ML Syringe FLUSH SCH (00:58)
[2024-12-07 21:05] VITALS: BP 122/78; PULSE 77
== END 2024-12-07 20:59 | disposition home or self-care (01) | DRG 560 ==
LOC: JD.OB 10:01 → OBSVTOIN 21:25
PROVIDERS: ADMIT Family Medicine; ATTEND Family Medicine
PROC: 10E0XZZ Delivery of Products of Conception, External Approach (ICD-10-PCS; principal; 2024-12-06)
PROC: 10907ZC Drainage of Amniotic Fluid, Therapeutic from Products of Conception, Via Natural or Artificial Opening (ICD-10-PCS; 2024-12-06)
PROC: 3E033VJ Introduction of Other Hormone into Peripheral Vein, Percutaneous Approach (ICD-10-PCS; 2024-12-06)
PROC: 3E0R3BZ Introduction of Anesthetic Agent into Spinal Canal, Percutaneous Approach (ICD-10-PCS; 2024-12-06)
PROC: 00HU33Z Insertion of Infusion Device into Spinal Canal, Percutaneous Approach (ICD-10-PCS; 2024-12-06)
PROC: 0HQ9XZZ Repair Perineum Skin, External Approach (ICD-10-PCS; 2024-12-06)
DX: O99.02 Anemia complicating childbirth (principal); Z37.0 Single live birth; D64.9 Anemia, unspecified; O70.0 First degree perineal laceration during delivery; O99.345 Other mental disorders complicating the puerperium; F41.9 Anxiety disorder, unspecified; Z3A.39 39 weeks gestation of pregnancy; Z88.2 Allergy status to sulfonamides; Z88.0 Allergy status to penicillin; Z88.8 Allergy status to other drugs, medicaments and biological substances
CPT/HCPCS: 36415; 51701; 59025; 59409; 85025; 86592; 86850; 86900; 86901; A9270-GY; J3490; J7120; J7999